=== PATIENT | female | born 1990 | race Caucasian/White ===

== ENCOUNTER 2018-11-26 09:34 | Outpatient (REF) | payer MEDICAID, SELFPAY ==
--- NOTE | 2018-11-26 08:30 | PAPFT_PTH ---
PATIENT: Ernestina Toribio LOC: [facility] U#:[id number] AGE/SX: 28/F ROOM: RE11/26/[address]: ILEANA Correa : 1990 BED: DIS: 11/26/2018 SPEC #: [id number] RECD: 11/26/18 12:54 STATUS: SURESH REaSbrina #: [id number] PEE: 11/26/18 08:[address]: Marylin Tatum DEPT: [facility] Cytology RECD BY: Judith Foster ENTERED: 11/26/18 12:54 SP TYPE: PAPFT OTHR DR: Gisselle Coello Tissues: 1 - CX/ENDOCX FOR PAP SMEARS Procedures: PAP THIN PREP/UVM Screening Comments: [id number]
== END 2018-11-26 09:54 ==
LOC: LBN 09:34
PROVIDERS: PCP Nurse Practitioner; Visit Provider Nurse Practitioner Family
DX: Z12.4 Encounter for screening for malignant neoplasm of cervix (principal)
CPT/HCPCS: 88142

== ENCOUNTER 2019-05-11 15:29 | Outpatient (REF) | payer MEDICAID, SELFPAY | END 2019-05-11 15:49 | LOC: LBN 15:29 | PROVIDERS: PCP Nurse Practitioner; Visit Provider Nurse Practitioner Family | DX: R30.0 Dysuria (principal) | CPT/HCPCS: 87086 ==

== ENCOUNTER 2020-03-13 13:52 | Emergency (ER) | payer MEDICAID, SELFPAY ==
[2020-03-13] VITALS (45 sets, daily range): BP systolic 117–140; BP diastolic 73–99; PULSE 69–121; RESP 13–29; TEMP 36.7–36.8; O2SAT 96–100
--- NOTE | 2020-03-13 14:00 | RT.EKG_ITS ---
APPROVED REPORT Exam: Resting ECG Patient Location: E HR:95 bpm ECG Measurements Heart Rate 95 AXIS VT 131 P 76 QRSd 84 QRS 84 QT 336 T 29 QTc 423 Conclusion Sinus rhythm...normal P axis, V-rate 60- 99 Normal Electrocardiogram
--- NOTE | 2020-03-13 14:30 | DI.CT_ITS ---
EXAM: CT CHEST PE CTA CLINICAL HISTORY: chest pain, cough. TECHNIQUE: Imaging Protocol: Axial CT angiography was performed with multi-slice acquisition and mu lti-planar and/or 3D reconstructions. CONTRAST MATERIAL: Intravenous: Omnipaque 350 Contrast volume:structured data in ml COMPARISON: No exams were available for comparison FINDINGS: CT angiography of the chest was performed with intravenous infusion of 58 cc of Omnipaque 350. The lungs are clear. No pleural effusion. Tracheobronchial tree appears intact. No evidence of pulmonary embolic disease. Thoracic aorta is of normal diameter, no thoracic aortic an eurysm or dissection, major branch vessels appear intact. No mediastinal or hilar adenopathy. Images obtained through the upper abdomen show unremarkable appearance of the visualized portions of the liver and spleen. IMPRESSION: Negative CT angiogram of the chest. No evidence of pulmonary embolic disease. RADIATION DOSE DELIVERED: 253.71mGy.cm Total DLP 253.71mGy.cm Total DLP DATA REPOSITORY: All CT scans at this facility are submitted to the National Radiology Data Registry (NRDR) Dose Index Registry (DIR) with the [employer] (ACR). RADIATION OPTIMIZATION: All CT scans at this facility use at least one of these dose optimization te chniques: automated exposure control; mA and/or kV adjustment per patient size (includes targeted exa ms where dose is matched to clinical indication); or iterative reconstruction.
[2020-03-13 14:35] LABS: Lactate 1.3 mmol/L (0.6-1.4)
[2020-03-13 14:40] LABS: Abs Immature Grans 0.01 10^3/uL (0.0-0.06); Absolute Basophil Count 0.01 10^3/uL (0.0-0.2); Absolute Eosinophil Count 0.05 10^3/uL (0.0-0.7); Absolute Monocyte Count 0.29 10^3/uL (0.1-0.8); Basophils % 0.2; Eosinophils % 0.9; HCT 41.1 % (36.0-46.0); HGB 14.5 g/dL (11.2-15.7); Immature Grans % 0.2; Lymphocytes % 29.3; MCH 30.5 pg (27.0-33.0); MCHC 35.3 % (32.0-36.0); MCV 86.5 fL (80-95); MPV 9.2 fL (8.0-11.0); Monocytes % 5.3; Neutrophils % 64.1; Nucleated RBC 0 %; Platelet Count 316 10^3/uL (130-400); RBC 4.75 10^6/uL (3.93-5.22); RDW 11.7 % (11.7-14.6); RDW-SD 36.6 fL; WBC 5.46 10^3/uL (4.4-10.8)
[2020-03-13 14:59] LABS: ALT 13 U/L (14-59); AST 16 U/L (15-37); Albumin 4.1 g/dL (3.4-5.0); Alkaline Phosphatase 72 U/L (46-116); Anion Gap 8.8 mmol/L (3-11); BUN 8 mg/dL (7-18); Bilirubin, Total 0.7 mg/dL (0.2-1.0); CO2 27.2 mmol/L (21.0-32.0); CREATININE 0.78 mg/dL (0.55-1.02); Calcium 9.3 mg/dL (8.5-10.1); Chloride 105 mmol/L (98-107); Glucose 100 mg/dL (74-106); Potassium 3.7 mmol/L (3.5-5.1); Sodium 141 mmol/L (136-145); Total Protein 7.4 g/dL (6.4-8.2)
[2020-03-13 15:03] LABS: Troponin I < 0.05 ng/mL (<0.06)
[2020-03-13 15:14] LABS: Bilirubin Negative (Negative); Blood Negative (Negative); Clarity Clear (Clear); Glucose Negative (Negative); Ketones 15 mg/dL (Negative); Leukocyte Esterase Negative (Negative); Nitrite Negative (Negative); Urobilinogen 0.2 EU/dL (Up TO 0.2); pH 8.5 (5-8)
[2020-03-13] MEDS: Normal Saline - Diluent 50 ML VIAL IV (15:28)
[2020-03-13] MEDS: Omnipaque 350 MG/ML 100 ML BTL IJ (15:28)
--- NOTE | 2020-03-13 16:18 | ED.GENADUL_ITS ---
Discharge Plan Disposition Patient Disposition: HOME Condition: Improving Discharge Details Clinical Impression: Cough, Chest pain Primary Care Provider: Gisselle Coello ED Provider: Gena Elise Home Meds and New Rx's Prescriptions: No Action norgestimate-ethinyl estradiol [Sprintec (28)] 0.25-35 mg-mcg tablet 1 tab PO DAILY Qty: 84 RF: 3 Discharge Instructions Instructions: Chest Pain (ED), Acute Cough (ED) Additional Instructions: Please return immediately to the emergency department if you develop any new or worsening symptoms, if your condition does not improve as expected, or if you become otherwise concerned. It is extremely important that you call soon as possible to make an appointment to be seen in follow-up for this visit by your primary care doctor. Your COVID test has not resulted. Please quarantine at home until you are notified of your test results. As you may be COVID positive, it is extremely important that you quarantine at home in isolation from others until this test results. If your symptoms of chest pain and fluttering continue, you could consider an outpatient heart monitor ordered by your primary care doctor. Referrals: Gisselle Coello [Primary Care Provider] - Discharge Data Discharge Date/Time-TO BE ENTERED AT DEPARTURE: 03/13/20 20:50 Discharge Physician: Gena Elise Medical Decision Making <Arlet Bowser MD - Last Filed: 04/10/20 08:24> Ernestina Toribio is a 29-year-old woman who presents emergency department with cough, mild shortness of breath, chest pain. On exam patient is well and nontoxic-appearing. Lungs are clear to auscultation. There is tenderness of the right lateral lower rib to palpation without overlying skin changes, no other chest tenderness. Benign cardiac exam. No lower extremity edema or posterior calf tenderness to palpation. Concern for pneumonia, Covid, other viral respiratory infection, other. With borderline tachycardia some concern for pulmonary embolism. Doubt ACS. Exam/history at this time is not consistent with rib fracture, acute aortic pathology, sepsis. Plan for EKG, CT chest, screening labs, IV fluid hydration. Will monitor and reassess. Initial EKG, troponin negative. CT negative. Patient now with tachycardia at 110. Plan for continued IV fluid hydration. Patient signed out to Dr. Elise at time of shift change with repeat EKG, troponin, and reassessment of tachycardia pending. Medical Records Medical records reviewed: Yes I reviewed the patient's medical records. Imaging Data Radiologic Study: Attestation: I personally reviewed and interpreted this imaging study as follows: Radiologist's impression: EXAM: CT CHEST PE CTA CLINICAL HISTORY: chest pain, cough. TECHNIQUE: Imaging Protocol: Axial CT angiography was performed with multi- slice acquisition and multi-planar and/or 3D reconstructions. CONTRAST MATERIAL: Intravenous: Omnipaque 350 Contrast volume:structured data in ml COMPARISON: No exams were available for comparison FINDINGS: CT angiography of the chest was performed with intravenous infusion of 58 cc of Omnipaque 350. The lungs are clear. No pleural effusion. Tracheobronchial tree appears intact. No evidence of pulmonary embolic disease. Thoracic aorta is of normal diameter, no thoracic aortic aneurysm or dissection, major branch vessels appear intact. No mediastinal or hilar adenopathy. Images obtained through the upper abdomen show unremarkable appearance of the visualized portions of the liver and spleen. IMPRESSION: Negative CT angiogram of the chest. No evidence of pulmonary embolic disease. Lab Data Lab results reviewed: Yes I reviewed the patient's lab results. ECG Data Attestation: I personally reviewed and interpreted this ECG (s) as follows: Interpretation: EKG shows sinus rhythm at 95, normal axis, no acute ischemic changes, nondiagnostic EKG <Gena Elise DO - Last Filed: 03/14/20 00:36> 1500 -- Please see Dr. Arlet Bowser's note for initial presentation, exam and plan. Case endorsed to follow-up on repeat troponin and EKG and reassessment of heart rate after IV fluids. Repeat troponin negative. Patient had 2 repeat EKGs within 40 minutes of each other. Second EKG notes less than [address] depression in anterior lateral and inferior leads. A third EKG was done which noted resolution of these depressions. Patient's heart rate has remained 80s to 90s on monitor. Upon my reevaluation, heart rate increased to 120s and she seemed extremely anxious. She does admit to occasional symptoms of fluttering, and expresses extreme anxiety about her symptoms and about possible coronavirus. Patient also had tenderness to palpation of her right lateral inferior ribs which she attributes to coughing this week. Overall patient's presentation appears most likely consistent with a URI process in association with possible bronchitis, anxiety and dehydration as she states she has not drank much water and has mainly drank 4 to 6 cups of coffee daily over the past few days. She was given a dose of Ativan and a Lidoderm patch and her symptoms improved. A fourth EKG was done which noted less than [address] depression in anterior, lateral and inferior leads similar to second EKG. No STEMI. Considering pat ient's symptom constellation, do not feel that this appears consistent with ACS. Patient feels much better and feels good to go home. She was advised to follow-up with her PCP for reevaluation and for referral for outpatient nuclear monitoring technician if her symptoms persist. Usual and customary return precautions given prior to discharge. Medical Records Medical records reviewed: Yes I reviewed the patient's medical records. Lab Data Lab results reviewed: Yes I reviewed the patient's lab results. ECG Data Attestation: I personally reviewed and interpreted this ECG (s) as follows: Interpretation: #1 -- rate of 95, sinus, no acute ST elevation or depression. TN 131. QRS 84. QTc 423. #2 -- rate of 118, sinus, less than [address] depression in lead I, II, III, aVF, V3 through V6. No acute ST elevation. TN 154. QRS 87. QTc 415. #3 -- rate of 93, sinus, no acute ST elevation or depression. TN 131. QRS 93. QTc 434. #4 -- rate of 96, sinus, questionable less than [address] depression in 1, 2, 3, aVF, V3 through V6, seen in previous. No acute ST elevation. TN 124. QRS 92. QTc 416. HPI <Arlet Bowser MD - Last Filed: 04/10/20 08:24> General Mode of arrival: ambulatory . Date/Time Provider Initiated Documentation: 03/13/20 14:08 . Limitations to Documentation: no limitations . Information obtained by: patient, RN notes reviewed and old records reviewed . HPI Narrative: Ernestina Toribio is a 29-year-old woman without reported history of medical problems presenting to the emergency department with cough, sore throat, chest pain. Patient reports that 1 week ago she developed dry cough, sore throat. Patient reports that her right lateral ribs began hurting several days after onset of cough, with pain only during coughing. Patient reports that she has felt mildly short of breath with exertion since onset of symptoms, but this has not prevented her from going about her usual activities. Patient reports that this morning she began to feel somewhat lightheaded with standing, and also reports sort of heaviness in her left anterior chest patient reports this is mild, states it is not currently occurring. Patient reports onset was at rest. She reports she has some pleuritic pain in her right lateral ribs, no other exertional or pleuritic pain. Has been eating and drinking as usual. Reports chills. She denies fevers, vomiting, diarrhea, numbness, weakness, rash. Related Data Home Medications Medication Instructions Recorded Confirmed norgestimate 0.25 mg-ethinyl 1 tab PO DAILY #84 tab 03/21/20 03/21/20 estradiol 35 mcg tablet Previous Rx's Medication Instructions Recorded norgestimate 0.25 mg-ethinyl 1 tab PO DAILY #84 tab 03/21/20 estradiol 35 mcg tablet Allergies Allergy/AdvReac Type Severity Reaction Status Date / Time No Known Allergies Allergy Verified 03/21/20 10:52 General Stated Complaint: RespSymp ROSSY: 3 Review of Systems <Arlet Bowser MD - Last Filed: 04/10/20 08:24> Narrative: Constitutional: denies fevers, reports chills Eyes: denies eye pain ENT: denies ear pain, dental pain, sore throat Cardiovascular: reports chest pain, denies edema Respiratory: Reports SOB, cough GI: denies abdominal pain, vomiting, diarrhea : denies flank pain MSK: denies back pain, neck pain, arthralgias, myalgias Skin: denies rash Neuro: denies headaches, numbness, weakness PFS <Arlet Bowser MD - Last Filed: 04/10/20 08:24> Medical History (Updated 03/13/20 @ 16:46 by Arlet Bowser MD) Contraception (06/22/15) Family History Mother Thyroid disorder Brother Thyroid disorder Grandmother Diabetes Social History Smoking/Tobacco Use Status: Never Smoking risk assessment performed?: Yes Alcohol Intake: current Alcohol Intake frequency: holidays/special occasions only Drug use: Never Substance use type: does not use current occupation: [employer] [place] [employer] Do you feel safe at home: Yes Female Reproductive History Menstrual control method: pills History History 0 Para Hx # Term Pregnancies Multiple births Hx # Pregnancies Ectopic pregnancies AB induced Hx Number of Living Children AB spontaneous Exam <Arlet Bowser MD - Last Filed: 04/10/20 08:24> Narrative Exam Narrative: Constitutional: well and [id number], pleasant, conversing normally HENT: head atraumatic/normocephalic/normal inspection, mucous membranes moist Eyes: conjunctiva normal, sclera normal, pupils 3mm b/l Neck: no stridor, normal ROM, trachea midline Chest: normal inspection, right lateral ribs mildly tender to palpation without overlying skin changes, no other chest tenderness Resp: normal work of breathing, LCTAB, Cardio: normal rate, normal rhythm, no murmur appreciated GI: abdomen soft, non-tender, non-distended Back: normal inspection, no rash Skin: warm, dry, normal color, no rash Neuro: alert, not altered, grossly non-focal, normal tone Ext: no edema, no posterior calf tenderness to palpation Psych: normal mood, normal affect, normal behavior Course <Arlet Bowser MD - Last Filed: 04/10/20 08:24> Vital Signs Vital signs: Vital Signs Temperature 36.7 C 03/13/20 13:59 Pulse 109 H 03/13/20 13:59 Respiratory Rate 18 03/13/20 13:59 Blood Pressure 140/91 H 03/13/20 13:59 Pulse Oximetry 100 03/13/20 13:59 Temperature 36.7 C 03/13/20 13:59 Temperature Source Temporal Artery Scan 03/13/20 13:59 Pulse 113 H 03/13/20 15:01 Pulse 82 03/13/20 15:50 Respiratory Rate 15 03/13/20 15:50 Respiratory Effort 03/13/20 14:05 Respiratory Depth Normal 03/13/20 14:05 Blood Pressure 132/99 H 03/13/20 15:01 Blood Pressure Mean 106 03/13/20 15:01 Blood Pressure Position Sitting 03/13/20 13:59 Pulse Oximetry 100 03/13/20 15:50 Oxygen Delivery Method Room Air 03/13/20 13:59 Oxygen Flow Rate 0 03/13/20 13:59 Pain Level 6 03/13/20 13:59 Lab/Test Results Lab/Test Results: Laboratory Tests Range/Units 03/13/20 03/13/20 03/13/20 14:17 14:17 14:17 WBC (4.4-10.8) 10^3/uL 5.46 RBC (3.93-5.22) 10^6/uL 4.75 Hgb (11.2-15.7) g/dL 14.5 Hct (36.0-46.0) % 41.1 MCV (80-95) fL 86.5 MCH (27.0-33.0) pg 30.5 MCHC (32.0-36.0) % 35.3 RDW (11.7-14.6) % 11.7 Plt Count (130-400) 10^3/uL 316 MPV (8.0-11.0) fL 9.2 Immature Gran % 0.2 Neutrophils % 64.1 Lymphocytes % 29.3 Monocytes % 5.3 Eosinophils % 0.9 Basophils % 0.2 Nucleated RBC % % 0 Absolute Neutrophils (1.2-6.7) 10^3/uL 3.50 Absolute Lymphocytes (1.2-3.4) 10^3/uL 1.60 Absolute Monocytes (0.1-0.8) 10^3/uL 0.29 Absolute Eosinophils (0.0-0.7) 10^3/uL 0.05 Absolute Basophils (0.0-0.2) 10^3/uL 0.01 VBG Lactate (0.6-1.4) mmol/L 1.3 Sodium (136-145) mmol/L 141 Potassium (3.5-5.1) mmol/L 3.7 Chloride (98-107) mmol/L 105 Carbon Dioxide (21.0-32.0) mmol/L 27.2 Anion Gap (3-11) mmol/L 8.8 BUN (7-18) mg/dL 8 Creatinine (0.55-1.02) mg/dL 0.78 Estimated GFR/1.73 m2 (mL/min/1.73m2) >= 60.00 Glucose (74-106) mg/dL 100 Calcium (8.5-10.1) mg/dL 9.3 Total Bilirubin (0.2-1.0) mg/dL 0.7 AST (15-37) U/L 16 ALT (14-59) U/L 13 L Alkaline Phosphatase (46-116) U/L 72 Troponin I (<0.06) ng/mL < 0.05 Total Protein (6.4-8.2) g/dL 7.4 Albumin (3.4-5.0) g/dL 4.1 Urine Color (Yellow) Urine Clarity (Clear) Urine pH (5-8) Ur Specific [place] (1.005-1.025) Urine Protein (Negative) mg/dL Urine Ketones (Negative) mg/dL Urine Blood (Negative) Urine Nitrite (Negative) Urine Bilirubin (Negative) Urine Urobilinogen (Up TO 0.2) EU/dL Ur Leukocyte Esterase (Negative) Urine Glucose (Negative) mg/dL Range/Units 03/13/20 15:05 WBC (4.4-10.8) 10^3/uL RBC (3.93-5.22) 10^6/uL Hgb (11.2-15.7) g/dL Hct (36.0-46.0) % MCV (80-95) fL MCH (27.0-33.0) pg MCHC (32.0-36.0) % RDW (11.7-14.6) % Plt Count (130-400) 10^3/uL MPV (8.0-11.0) fL Immature Gran % Neutrophils % Lymphocytes % Monocytes % Eosinophils % Basophils % Nucleated RBC % % Absolute Neutrophils (1.2-6.7) 10^3/uL Absolute Lymphocytes (1.2-3.4) 10^3/uL Absolute Monocytes (0.1-0.8) 10^3/uL Absolute Eosinophils (0.0-0.7) 10^3/uL Absolute Basophils (0.0-0.2) 10^3/uL VBG Lactate (0.6-1.4) mmol/L Sodium (136-145) mmol/L Potassium (3.5-5.1) mmol/L Chloride (98-107) mmol/L Carbon Dioxide (21.0-32.0) mmol/L Anion Gap (3-11) mmol/L BUN (7-18) mg/dL Creatinine (0.55-1.02) mg/dL Estimated GFR/1.73 m2 (mL/min/1.73m2) Glucose (74-106) mg/dL Calcium (8.5-10.1) mg/dL Total Bilirubin (0.2-1.0) mg/dL AST (15-37) U/L ALT (14-59) U/L Alkaline Phosphatase (46-116) U/L Troponin I (<0.06) ng/mL Total Protein (6.4-8.2) g/dL Albumin (3.4-5.0) g/dL Urine Color (Yellow) Yellow Urine Clarity (Clear) Clear Urine pH (5-8) 8.5 H Ur Specific [place] (1.005-1.025) 1.020 Urine Protein (Negative) mg/dL Negative Urine Ketones (Negative) mg/dL 15 H Urine Blood (Negative) Negative Urine Nitrite (Negative) Negative Urine Bilirubin (Negative) Negative Urine Urobilinogen (Up TO 0.2) EU/dL 0.2 Ur Leukocyte Esterase (Negative) Negative Urine Glucose (Negative) mg/dL Negative POC- Test(urine) Negative Sign Out <Arlet Bowser MD - Last Filed: 04/10/20 08:24> Sign Out Data: Sign Out Comment: Patient signed out to Dr. Elise at time of shift change with repeat troponin, reassessment of tachycardia pending Last updated by Arlet Bowser MD at 03/13/20 16:48
--- NOTE | 2020-03-13 16:30 | RT.EKG_ITS ---
APPROVED REPORT Exam: Resting ECG Patient Location: E HR:118 bpm ECG Measurements Heart Rate 118 AXIS WV 154 P 66 QRSd 87 QRS 82 QT 296 T -75 QTc 415 Conclusion Sinus tachycardia...rate> 99 Nonspecific repol abnormality, diffuse leads...ST dep, T flat/neg, ant/lat/inf. Less than 1mm ST depression in I, II, III, aVF, V3-V6. No STEMI. I have reviewed and interpreted ECG and agree with software generated interpretation.
--- NOTE | 2020-03-13 17:15 | RT.EKG_ITS ---
APPROVED REPORT Exam: Resting ECG Patient Location: E HR:93 bpm ECG Measurements Heart Rate 93 AXIS MI 131 P 64 QRSd 93 QRS 79 QT 347 T 49 QTc 434 Conclusion Sinus rhythm...normal P axis, V-rate 60- 99.. No STEMI. I have reviewed and interpreted ECG and agree with software generated interpretation.
[2020-03-13 18:02] LABS: Troponin I < 0.05 ng/mL (<0.06)
--- NOTE | 2020-03-13 19:30 | RT.EKG_ITS ---
APPROVED REPORT Exam: Resting ECG Patient Location: E HR:96 bpm ECG Measurements Heart Rate 96 AXIS MS 124 P 68 QRSd 92 QRS 73 QT 329 T -19 QTc 416 Conclusion Sinus rhythm...normal P axis, V-rate 60- 99. Questionable less than 1mm ST depression in I, II, III, aVF, V3-6, seen in previous. No STEMI. I have reviewed and interpreted ECG and agree with software generated interpretation.
[2020-03-13] MEDS: Lidocaine 5% Patch 1 PATCH TP (19:52)
[2020-03-13] MEDS: LORazepam 0.5 MG TAB PO (19:52)
[2020-03-15 02:55] LABS: Patient Race White; SARS-CoV-2 RNA Undetected (Undetected); SARS-CoV-2 Specimen Source Nasopharynx
--- NOTE | 2020-03-16 17:40 | NUR.NOTE ---
Nursing Note: Negative COVID results given over the phone at 1740 to pt after verification of identification.
== END 2020-03-13 20:50 | disposition home or self-care (01) ==
PROVIDERS: Student in an Organized Health Care Education/Training Program; Emergency Provider Physician Assistant; PCP Nurse Practitioner
DX: R07.89 Other chest pain (principal); R05 Cough; Z11.59 Encounter for screening for other viral diseases
CPT/HCPCS: 36415; 71275; 80053; 81025; 93005; 99285; U0003; 81003; 83605; 84484; 85025; 93010; 99281; J3490

== ENCOUNTER 2020-03-21 12:22 | Outpatient (REF) | payer MEDICAID, SELFPAY ==
--- NOTE | 2020-03-21 11:15 | PAPFT_PTH ---
PATIENT: Ernestina Toribio LOC: [facility] U#:[id number] AGE/SX: 29/F ROOM: RE03/21/[address]: ILEANA Correa : 1990 BED: DIS: 03/21/2020 SPEC #: [id number] RECD: 03/21/20 17:39 STATUS: SURESH REQ #: [id number] PEE: 03/21/20 11:[address]: Marylin Tatum DEPT: [facility] Cytology RECD BY: Judith Foster ENTERED: 03/21/20 17:39 SP TYPE: PAPFT OTHR DR: Gisselle Coello Tissues: 1 - CX/ENDOCX FOR PAP SMEARS Procedures: PAP THIN PREP/[facility]VM Screening Comments: [id number]
== END 2020-03-21 12:42 ==
LOC: LBN 12:22
PROVIDERS: PCP Nurse Practitioner; Visit Provider Nurse Practitioner Family
DX: Z12.4 Encounter for screening for malignant neoplasm of cervix (principal)
CPT/HCPCS: 88142

== ENCOUNTER 2020-08-03 03:51 | Outpatient (RCR) | payer MEDICAID, SELFPAY | END 2020-08-06 23:59 | disposition home or self-care (01) | LOC: RT 03:51 | PROVIDERS: PCP Nurse Practitioner; Visit Provider Physician Assistant | DX: R69 Illness, unspecified (principal) ==

== ENCOUNTER 2020-08-31 03:09 | Outpatient (RCR) | payer MEDICAID, SELFPAY | END 2020-09-06 23:59 | disposition home or self-care (01) | LOC: RT 03:09 | PROVIDERS: PCP Nurse Practitioner; Visit Provider Physician Assistant | DX: R69 Illness, unspecified (principal) ==

== ENCOUNTER 2021-04-06 15:44 | Outpatient (REF) | payer OTHER, SELFPAY ==
--- NOTE | 2021-04-06 15:15 | PAPFT_PTH ---
PATIENT: Ernestina Toribio LOC: [facility] U#:[id number] AGE/SX: 30/F ROOM: RE04/06/[address]: ILEANA Correa : 1990 BED: DIS: 04/06/2021 SPEC #: [id number] RECD: 04/06/21 17:41 STATUS: SURESH REQ #: [id number] PEE: 04/06/21 15:[address]: Marylin Tatum DEPT: [facility] Cytology RECD BY: Judith Foster ENTERED: 04/06/21 17:42 SP TYPE: PAPFT OTHR DR: Gisselle Coello Tissues: 1 - CX/ENDOCX FOR PAP SMEARS Procedures: PAP THIN PREP/UVM Screening HPV DNA PROBE Comments: [id number]
== END 2021-04-06 15:45 | disposition home or self-care (01) ==
LOC: LBN 15:44
PROVIDERS: PCP Nurse Practitioner; Visit Provider Nurse Practitioner Family
DX: Z12.4 Encounter for screening for malignant neoplasm of cervix (principal); R87.610 Atypical squamous cells of undetermined significance on cytologic smear of cervix (ASC-US)
CPT/HCPCS: 88142; 87624

== ENCOUNTER 2021-04-30 12:46 | Outpatient (REF) | payer OTHER, MEDICAID, SELFPAY | END 2021-04-30 12:47 | disposition home or self-care (01) | LOC: LBN 12:46 | PROVIDERS: PCP Nurse Practitioner; Visit Provider Physician Assistant Medical | DX: R30.0 Dysuria (principal) | CPT/HCPCS: 87086 ==

== ENCOUNTER 2021-05-05 17:21 | Emergency (ER) | payer OTHER, MEDICAID, SELFPAY ==
[2021-05-05 17:30] VITALS: BP 119/79; PULSE 89; RESP 16; TEMP 35.5; O2SAT 100
--- NOTE | 2021-05-05 17:45 | DI.CT_ITS ---
Exam(s) CT HEAD WO EXAM: CT HEAD WO CLINICAL HISTORY: L frontal injury, pain. TECHNIQUE: Imaging Protocol: Axial computed tomography images with coronal and sagittal reformatted images were created and reviewed COMPARISON: No exams were available for comparison FINDINGS: There are no skull fractures nor fluid in the visualized paranasal sinuses. There is no evidence of intracranial hemorrhage, mass effect, or shift of midline structures. There are no extra-axial fluid collections. The ventricles are not enlarged or shifted and there is no blo od within the ventricular system nor within the basal cisterns. Mild cerebellar tonsillar ectopia. IMPRESSION: No acute intracranial findings on this noninfused CT scan of the brain. There appears to be mild cerebellar tonsillar ectopia. If clinically indicated further study with MR I can be performed. RADIATION DOSE DELIVERED: 627.12mGy.cm Total DLP DATA REPOSITORY: All CT scans at this facility are submitted to the National Radiology Data Registry (NRDR) Dose Index Registry (DIR) with the [employer] (A[employer]). RADIATION OPTIMIZATION: All CT scans at this facility use at least one of these dose optimization te chniques: automated exposure control; mA and/or kV adjustment per patient size (includes targeted exa ms where dose is matched to clinical indication); or iterative reconstruction.
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
--- NOTE | 2021-05-05 19:32 | DI.VRAD_ITS ---
PROCEDURE INFORMATION: Exam: CT Head Without Contrast Exam date and time: 05/05/2021 5:47 PM Age: 30 years old Clinical indication: Other: L frontal injury, pain TECHNIQUE: Imaging protocol: Computed tomography of the head without contrast. Radiation optimization: All CT scans at this facility use at least one of these dose optimization techniques: automated exposure control; mA and/or kV adjustment per patient size (includes targeted exams where dose is matched to clinical indication); or iterative reconstruction. COMPARISON: No relevant prior studies available. FINDINGS: Brain: Normal. No hemorrhage. Unremarkable white matter. No mass effect. Extra-axial space: No evidence of subdural hemorrhage. Cerebral ventricles: No ventriculomegaly. Paranasal sinuses: Visualized sinuses are unremarkable. No fluid levels. Mastoid air cells: Visualized mastoid air cells are well aerated. Bones/joints: Unremarkable. No acute fracture. Soft tissues: Unremarkable. IMPRESSION: No acute intracranial abnormality. Dictated and Authenticated by: Michael Adams MD. Ordering:ENA Elmore MD
== END 2021-05-05 19:51 | disposition home or self-care (01) ==
PROVIDERS: Emergency Provider Emergency Medicine; PCP Nurse Practitioner
DX: S09.8XXA Other specified injuries of head, initial encounter (principal); W22.8XXA Striking against or struck by other objects, initial encounter
CPT/HCPCS: 81025; 99284; 70450; 99283

== ENCOUNTER 2021-05-07 14:58 | Outpatient (REF) | payer OTHER, MEDICAID, SELFPAY ==
--- NOTE | 2021-05-07 14:50 | ENDO_PTH ---
PATIENT: Ernestina Toribio LOC: [facility] U#:[id number] AGE/SX: 30/F ROOM: RE05/07/[address]: Mari Fowler DO : 1990 BED: DIS: 05/07/2021 SPEC #: [id number] RECD: 05/07/21 17:44 STATUS: SURESH REQ #: [id number] PEE: 05/07/21 14:[address]: Mari Fowler DEPT: Surgical Specimen RECD BY: Judith Foster ENTERED: 05/07/21 17:45 SP TYPE: Endo OTHR DR: Gisselle Coello Tissues: 1 - ENDOCERVICAL BX/CURRETTE Procedures: GROSS AND MICRO LEVEL 4 Comments: [id number]
== END 2021-05-07 14:59 | disposition home or self-care (01) ==
LOC: LBN 14:58
PROVIDERS: PCP Nurse Practitioner; Visit Provider Obstetrics & Gynecology
DX: R87.610 Atypical squamous cells of undetermined significance on cytologic smear of cervix (ASC-US) (principal)
CPT/HCPCS: 88305

== ENCOUNTER 2021-05-22 14:52 | Outpatient (REF) | payer OTHER, MEDICAID, SELFPAY | END 2021-05-22 14:53 | disposition home or self-care (01) | LOC: LBN 14:52 | PROVIDERS: PCP Nurse Practitioner Family; Visit Provider Nurse Practitioner Family | DX: R10.11 Right upper quadrant pain (principal); R30.0 Dysuria | CPT/HCPCS: 87329; 87480; 87510; 87660 ==

== ENCOUNTER 2021-07-14 16:49 | Emergency (ER) | payer OTHER, MEDICAID, SELFPAY ==
[2021-07-14 17:04] VITALS: BP 120/87; PULSE 116; RESP 18; TEMP 36.6; O2SAT 99
[2021-07-14 17:04] LABS: Bilirubin Negative (Negative); Blood Negative (Negative); Clarity Clear (Clear); Glucose Negative (Negative); Ketones Negative (Negative); Leukocyte Esterase Negative (Negative); Nitrite Negative (Negative); pH 6.5 (5-8)
--- NOTE | 2021-07-14 17:19 | W.ED.GENAD ---
Discharge Plan Disposition Patient Disposition: HOME Condition: Improving Discharge Details Clinical Impression: Gaseous abdominal distention Primary Care Provider: Yuan Rushing ED Provider: Ramírez Hale Home Meds and New Rx's Prescriptions: Continued azjrxffz-yoq-Lf-FA 1 mg Tablet PO RF: 0 Discharge Instructions Additional Instructions: Your work-up today including laboratory testing with CBC, comprehensive panel, serum beta hCG was reassuring. Your urine and blood test were negative. You may still have the chance of an early and I recommend you repeat a home test if you do not have your menstrual period in the next 3 to 7 days time. Home to rest today. Small, frequent sips of fluid so that you maintain good hydration. Return to the emergency department for any acute concerns. Medical Decision Making 31-year-old female presents with lower abdominal cramping discomfort over the few days time. He is concerned because she is trying to get has been late for her period. She is not had nausea, vomiting or fever. Screening laboratories obtained. Patient is a white count of 5, hematocrit 42, platelets 254. Chemistries reassuring, LFTs unremarkable, beta hCG negative. Patient improved with fluids. She is stable and appropriate for outpatient management. HPI General Mode of arrival: ambulatory. Date/Time Provider Initiated Documentation: 07/14/21 16:50. Limitations to Documentation: no limitations. Information obtained by: patient. History of Present Illness 31 year old F presents to the emergency department with the chief complaint of Lower abdomen cramping and lightheadedness, described as mild, and is localized to the abdomen and pelvis. Patient reports no radiation. Patient started experiencing this day(s) and it has been intermittent. No relieving factors improve symptom(s), No exacerbating factors reported . Patient notes denies diaphoresis, fever/chills and nausea/vomiting. Patient did receive the following treatments prior to arrival, none Related Data Home Medications Medication Instructions Recorded Confirmed eznnayvh-shf-Hk-FA tab PO 05/05/21 Allergies Allergy/AdvReac Type Severity Reaction Status Date / Time No Known Allergies Allergy Verified 07/14/21 17:11 General Stated Complaint: Abd Prob ROSSY: 3 Review of Systems Narrative: Has been trying to get . 2 days late for her period. No vaginal discharge or bleeding. Feels flatus and gaseousness. Normal bowel movements. No known sick contacts. 8 systems were reviewed and otherwise negative. PFSH All Active Problems (Updated 07/14/21 @ 18:36 by Ramírez Hale MD) Closed head injury (Acute) Gaseous abdominal distention (Acute) Annual physical exam (Acute) Contraception (Acute 06/22/15) Family History Mother Thyroid disorder Brother Thyroid disorder Grandmother Diabetes Social History Smoking/Tobacco Use Status: Never Smoking risk assessment performed?: Yes Alcohol Intake: current Alcohol Intake frequency: holidays/special occasions only Drug use: Never Substance use type: does not use Counseling given: No Counseling provided: none current occupation: [employer] [place] [employer] Do you feel safe at home: Yes Do you feel safe in your relationship?: Yes Female Reproductive History Menstrual control method: pills History History 0 Para Hx # Term Pregnancies Multiple births Hx # Pregnancies Ectopic pregnancies AB induced Hx Number of Living Children AB spontaneous Exam Narrative Exam Narrative: GEN: awake, alert, oriented 3. Pleasant, well groomed, interactive. HEAD: Normocephalic, atraumatic ENT: Mucous membranes moist, oropharynx unremarkable, External ear exam unremarkable EYES: PERRL, EOMI NECK: Full ROM, no SHEREE, no menigismus CHEST/RESP: Nontender, clear to auscultation bilateral, no wheeze/rhonchi/rales CARDIOVASCULAR: Regular and tachycardic it was working, no murmur, rub teo. 2+ Rad pulse bilateral ABDOMEN: Soft, nontender, no mass. +Bowel sounds EXT: Full ROM, no edema, no rash Neuro: Grossly normal neurologic exam, conversant, interactive. Psych: Speech fluent, thoughts congruent, affect normal Course Vital Signs Vital signs: Vital Signs Temperature 36.6 C 07/14/21 17:04 Pulse 116 H 07/14/21 17:04 Respiratory Rate 18 07/14/21 17:04 Blood Pressure 120/87 07/14/21 17:04 Pulse Oximetry 99 07/14/21 17:04 Temperature 36.6 C 07/14/21 17:04 Temperature Source Oral 07/14/21 17:04 Pulse 116 H 07/14/21 17:04 Respiratory Rate 18 07/14/21 17:04 Respiratory Effort Non-Labored 07/14/21 17:04 Blood Pressure 120/87 07/14/21 17:04 Blood Pressure Position Sitting 07/14/21 17:04 Pulse Oximetry 99 07/14/21 17:04 Oxygen Delivery Method Room Air 07/14/21 17:04 Oxygen Flow Rate 0 07/14/21 17:04 Pain Level 0 07/14/21 17:04 Lab/Test Results Lab/Test Results: Laboratory Tests Range/Units 07/14/21 17:00 Urine Color (Yellow) Yellow Urine Clarity (Clear) Clear Urine pH (5-8) 6.5 Ur Specific [place] (1.005-1.025) 1.010 Urine Protein (Negative) mg/dL Negative Urine Ketones (Negative) mg/dL Negative Urine Blood (Negative) Negative Urine Nitrite (Negative) Negative Urine Bilirubin (Negative) Negative Urine Urobilinogen (Up TO 0.2) EU/dL 1.0 H Ur Leukocyte Esterase (Negative) Negative Urine Glucose (Negative) mg/dL Negative POC- Test(urine) Negative PAWSS Have you Been Recently Intoxicated or Drunk Within the Last 30 days?: No Have you Ever Experienced Previous Episodes of Alcohol Withdrawal?: No Have you ever Experienced Withdrawal Seizures?: No Have you ever Experienced Delirium Tremens(DT)s?: No Have you ever undergone Alcohol Rehabilitation Treatment (i.e, inpt ot outpatient treatment programs)?: No Have you ever Experienced Blackouts?: No Have you ever Combined Alcohol with other Downers within the last 90 days?: No Have you ever Combined Alcohol with any other Substance of Abuse during the last 90 days?: No Positive Blood Alcohol level on Presentation? [PCS.BAL]: No Evidence of Increased Autonomic Activity (i.e. HR>120, tremor, sweating, agitation, nausea)?: No Result: 0
[2021-07-14] MEDS: Normal Saline 1,000 ML 1000 ML IV (17:41)
[2021-07-14 17:57] LABS: Abs Immature Grans 0.01 10^3/uL (0.0-0.06); Absolute Basophil Count 0.01 10^3/uL (0.0-0.2); Absolute Eosinophil Count 0.03 10^3/uL (0.0-0.7); Absolute Lymphocyte Count 1.45 10^3/uL (1.2-3.4); Absolute Monocyte Count 0.33 10^3/uL (0.1-0.8); Absolute Neutrophil Count 3.88 10^3/uL (1.2-6.7); Basophils % 0.2; Eosinophils % 0.5; HCT 42.1 % (36.0-46.0); HGB 14.6 g/dL (11.2-15.7); Immature Grans % 0.2; Lymphocytes % 25.4; MCH 29.7 pg (27.0-33.0); MCHC 34.7 % (32.0-36.0); MCV 85.6 fL (80-95); MPV 9.4 fL (8.0-11.0); Monocytes % 5.8; Neutrophils % 67.9; Nucleated RBC 0 %; Platelet Count 254 10^3/uL (130-400); RBC 4.92 10^6/uL (3.93-5.22); RDW 11.7 % (11.7-14.6); RDW-SD 36.2 fL; WBC 5.71 10^3/uL (4.4-10.8)
[2021-07-14 18:18] LABS: ALT 18 U/L (14-59); AST 15 U/L (15-37); Albumin 4.3 g/dL (3.4-5.0); Alkaline Phosphatase 72 U/L (46-116); Anion Gap 9.4 mmol/L (3-11); BUN 12 mg/dL (7-18); CO2 27.6 mmol/L (21.0-32.0); CREATININE 0.8 mg/dL (0.55-1.02); Chloride 104 mmol/L (98-107); Glucose 110 mg/dL (74-106); Magnesium 1.9 mg/dL (1.8-2.4); Potassium 3.8 mmol/L (3.5-5.1); Sodium 141 mmol/L (136-145); Total Protein 7.4 g/dL (6.4-8.2)
[2021-07-14 18:19] LABS: HCG Quant, Pregnancy < 1 mIU/mL (1-3)
== END 2021-07-14 19:17 | disposition home or self-care (01) ==
PROVIDERS: Emergency Provider Emergency Medicine; PCP Nurse Practitioner Family
DX: R14.0 Abdominal distension (gaseous) (principal); R10.30 Lower abdominal pain, unspecified
CPT/HCPCS: 36415; 80053; 81025; 96360; 99284; 81003; 83735; 84702; 85025; 99283

== ENCOUNTER 2021-10-23 02:19 | Outpatient (CLI) | payer OTHER, SELFPAY ==
[2021-10-23 12:20] LABS: Abs Immature Grans 0.02 10^3/uL (0.0-0.06); Absolute Basophil Count 0.02 10^3/uL (0.0-0.2); Absolute Eosinophil Count 0.06 10^3/uL (0.0-0.7); Absolute Monocyte Count 0.43 10^3/uL (0.1-0.8); Absolute Neutrophil Count 5.86 10^3/uL (1.2-6.7); Basophils % 0.2; Eosinophils % 0.7; HCT 36.8 % (36.0-46.0); Immature Grans % 0.2; Lymphocytes % 24.7; MCH 30.7 pg (27.0-33.0); MCHC 35.3 % (32.0-36.0); MCV 87 fL (80-95); Monocytes % 5.1; Neutrophils % 69.1; Platelet Count 237 10^3/uL (130-400); RBC 4.24 10^6/uL (3.93-5.22); RDW 12.2 % (11.7-14.6); RDW-SD 38.5 fL; WBC 8.49 10^3/uL (4.4-10.8)
[2021-10-23 13:00] LABS: *AMPHETAMINES SCREEN URINE Negative (Negative); *BARBITURATES SCREEN URINE Negative (Negative); *BENZODIAZEPINES SCREEN URINE Negative (Negative); Cannabinoids THC Negative (Negative); Cocaine Screen,Urine Negative (Negative); METHADONE URINE SCREEN Negative (Negative); OPIATES URINE SCREEN Negative (Negative)
[2021-10-23 13:08] LABS: Tricyclic Antidepressants Negative (Negative)
[2021-10-23 13:51] LABS: TSH (W/Ref FT4) 0.54 uIU/mL (0.36-3.74)
[2021-10-24 09:35] LABS: Hepatitis B Surface Ag Negative (Negative)
[2021-10-24 10:18] LABS: HIV-1/2 Ag & Ab Screen Negative (Negative)
[2021-10-24 10:25] LABS: Hepatitis C Ab w Rflx HCV PCR Negative (Negative)
[2021-10-24 10:57] LABS: Varicella IgG Antibody Positive (See Note)
[2021-10-24 10:59] LABS: Rubella IgG Ab (UVM) Positive (See Note)
[2021-10-25 16:38] LABS: Syphilis IgG w/Reflex Nonreactive (Nonreactive)
[2021-10-30 12:41] LABS: Buprenorphine Negative ng/mL (Cutoff: 5.0)
== END 2021-10-23 02:20 | disposition home or self-care (01) ==
LOC: LBO 02:19
PROVIDERS: PCP Nurse Practitioner Family; Visit Provider Advanced Practice Midwife
DX: Z34.91 Encounter for supervision of normal pregnancy, unspecified, first trimester (principal); Z3A.12 12 weeks gestation of pregnancy
CPT/HCPCS: 36415; 80307; 86787; 86803; 86850; 86900; 86901; 87340; 87389; 84443; 85025; 86762; 86780; 87086

== ENCOUNTER 2021-11-20 02:30 | Outpatient (CLI) | payer OTHER, SELFPAY ==
[2021-11-21 16:35] LABS: AFP 63.9 ng/mL; Calculated age at EDD 30 years; Cigarette smoking status non-Smoker; GA used in risk estimate Scan estimate; INHIBIN 224 pg/mL; IVF Pregnancy No; Initial or repeat testing Initial testing; Insulin dependent diabetes No; Maternal Weight 118 lbs; Number of Fetuses 1; Physician Phone Number 802-748-7300; Prev Down(T21)/Trisomy Pregnan No; Prev Pregnancy w/NTD No; RECOMMENDED FOLLOW UP None.; Results Summary Normal risk; hCG, TOTAL 31.7 IU/mL; hCG, TOTAL MoM 0.87 MoM; uE3 1.28 ng/mL; uE3 MoM 1.15 MoM
== END 2021-11-20 02:31 | disposition home or self-care (01) ==
LOC: LBO 02:30
PROVIDERS: Advanced Practice Midwife; PCP Nurse Practitioner Family; Visit Provider Advanced Practice Midwife
DX: Z34.92 Encounter for supervision of normal pregnancy, unspecified, second trimester (principal); Z36.89 Encounter for other specified antenatal screening; Z3A.16 16 weeks gestation of pregnancy
CPT/HCPCS: 36415; 81511

== ENCOUNTER 2021-11-20 14:51 | Outpatient (REF) | payer OTHER, SELFPAY ==
[2021-11-21 14:56] LABS: Chlamydia Result Negative (Negative); GC Result Negative (Negative)
== END 2021-11-20 14:52 | disposition home or self-care (01) ==
LOC: LBN 14:51
PROVIDERS: PCP Nurse Practitioner Family; Visit Provider Advanced Practice Midwife
DX: Z34.92 Encounter for supervision of normal pregnancy, unspecified, second trimester (principal); Z11.3 Encounter for screening for infections with a predominantly sexual mode of transmission; Z3A.16 16 weeks gestation of pregnancy
CPT/HCPCS: 87491; 87591

== ENCOUNTER 2022-02-13 04:04 | Outpatient (CLI) | payer OTHER, SELFPAY ==
[2022-02-13 09:51] LABS: HCT 33.8 % (36.0-46.0); HGB 11.7 g/dL (11.2-15.7); MCH 30.6 pg (27.0-33.0); MCHC 34.6 % (32.0-36.0); MCV 89 fL (80-95); MPV 9.3 fL (8.0-11.0); Platelet Count 183 10^3/uL (130-400); RBC 3.82 10^6/uL (3.93-5.22); RDW 11.9 % (11.7-14.6); RDW-SD 38.4 fL; WBC 6.91 10^3/uL (4.4-10.8)
[2022-02-13 10:26] LABS: Glucose,1 Hr (Glucola) 91 mg/dL (80-140)
== END 2022-02-13 04:05 | disposition home or self-care (01) ==
LOC: LBO 04:05
PROVIDERS: PCP Nurse Practitioner Family; Visit Provider Advanced Practice Midwife
DX: Z34.93 Encounter for supervision of normal pregnancy, unspecified, third trimester (principal)
CPT/HCPCS: 36415; 82950; 85027; 86850; 86900; 86901; 90384

== ENCOUNTER 2022-04-12 13:16 | Outpatient (REF) | payer OTHER, SELFPAY ==
[2022-04-12 11:31] LABS: *AMPHETAMINES SCREEN URINE Negative (Negative); *BARBITURATES SCREEN URINE Negative (Negative); *BENZODIAZEPINES SCREEN URINE Negative (Negative); Cannabinoids THC Negative (Negative); Cocaine Screen,Urine Negative (Negative); METHADONE URINE SCREEN Negative (Negative); OPIATES URINE SCREEN Negative (Negative); Tricyclic Antidepressants Negative (Negative)
== END 2022-04-12 13:17 | disposition home or self-care (01) ==
LOC: LBN 13:16
PROVIDERS: Visit Provider Advanced Practice Midwife
DX: Z34.93 Encounter for supervision of normal pregnancy, unspecified, third trimester (principal); Z36.85 Encounter for antenatal screening for Streptococcus B; Z3A.36 36 weeks gestation of pregnancy
CPT/HCPCS: 80307; 87081

== ENCOUNTER 2022-04-26 04:44 | Inpatient (IN) | payer OTHER, SELFPAY ==
[2022-04-26] VITALS (14 sets, daily range): BP systolic 119–172; BP diastolic 73–106; PULSE 80–133; RESP 12–18; TEMP 36.5–37; TEMPC 36.6; O2SAT 96–98; BMI 28.3
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
[2022-04-26] MEDS: Normal Saline Flush 10 ML SYR IVP (05:15)
[2022-04-26 05:18] LABS: HCT 38.6 % (36.0-46.0); MCH 28.8 pg (27.0-33.0); MCHC 33.7 % (32.0-36.0); MCV 86 fL (80-95); MPV 10.6 fL (8.0-11.0); Platelet Count 157 10^3/uL (130-400); RBC 4.51 10^6/uL (3.93-5.22); RDW 12.1 % (11.7-14.6); RDW-SD 37.7 fL; WBC 7.42 10^3/uL (4.4-10.8)
[2022-04-26 05:33] LABS: ALT 14 U/L (14-59); AST 25 U/L (15-37); Albumin 2.8 g/dL (3.4-5.0); Alkaline Phosphatase 196 U/L (46-116); Anion Gap 13.7 mmol/L (3-11); BUN 12 mg/dL (7-18); Bilirubin, Total 0.4 mg/dL (0.2-1.0); CO2 21.3 mmol/L (21.0-32.0); CREATININE 0.9 mg/dL (0.55-1.02); Calcium 8.7 mg/dL (8.5-10.1); Chloride 103 mmol/L (98-107); Glucose 76 mg/dL (74-106); LDH 237 U/L (81-234); Potassium 3.7 mmol/L (3.5-5.1); Sodium 138 mmol/L (136-145); Total Protein 6.6 g/dL (6.4-8.2); Uric Acid 5.4 mg/dL (2.6-6.0)
--- NOTE | 2022-04-26 05:55 | PGE_ITS ---
Date of service: 04/26/22 Time of Service: 05:55 Informed Consent Informed Consent: Risk,Benefits,Alternatives Discussed (IV access and lab/assessment for pre-eclampsia.) Pelvic Exam Comments: VE deferred Contractions Monitor Mode: External Contraction Frequency(min): 2-4 Contraction Duration(sec): 40-90 Intensity: Moderate Fetus A Monitor: External (US) Heart Rate Baseline: 120 Variability: Moderate (6-25 BPM) Categories: Category I Accelerations: 15 X 15 Decelerations: None Amniotic Membrane Status: Ruptured Rupture Method: Spontaneous Amniotic Fluid: Clear Amount: large Date of Membrane Rupture: 04/26/22 Time of Membrane Rupture: 02:30 Assessment Note: corrected time of ROM noted Assessment and Plan Assessment and plan (1) Normal labor: Status: Acute Assessment and plan: 1. continue present management 2. Bridge Rigger reviewed with CAR WORKER who is currently button tufting machine operator to report to on-coming CAR WORKER that patient has considered epidural, not currently requesting. I also reviewed COVID + status with CAR WORKER. KH Objective Abnormal lab results 04/26/22 Range/Units 05:05 Anion Gap 13.7 H (3-11) mmol/L Alkaline Phosphatase 196 H (46-116) U/L Lactate Dehydrogenase 237 H (81-234) U/L Albumin 2.8 L (3.4-5.0) g/dL Temp Pulse Resp BP 98.6 F 104 H 16 142/85 H 04/26/22 05:16 04/26/22 05:16 04/26/22 05:16 04/26/22 05:16 Laboratory Results WBC 7.42 10^3/uL (4.4-10.8) 04/26/22 05:05 RBC 4.51 10^6/uL (3.93-5.22) 04/26/22 05:05 Hgb 13.0 g/dL (11.2-15.7) 04/26/22 05:05 Hct 38.6 % (36.0-46.0) 04/26/22 05:05 MCV 86 fL (80-95) 04/26/22 05:05 MCH 28.8 pg (27.0-33.0) 04/26/22 05:05 MCHC 33.7 % (32.0-36.0) 04/26/22 05:05 RDW 12.1 % (11.7-14.6) 04/26/22 05:05 Plt Count 157 10^3/uL (130-400) 04/26/22 05:05 MPV 10.6 fL (8.0-11.0) 04/26/22 05:05 Sodium 138 mmol/L (136-145) 04/26/22 05:05 Potassium 3.7 mmol/L (3.5-5.1) 04/26/22 05:05 Chloride 103 mmol/L (98-107) 04/26/22 05:05 Carbon Dioxide 21.3 mmol/L (21.0-32.0) 04/26/22 05:05 Anion Gap 13.7 mmol/L (3-11) H 04/26/22 05:05 BUN 12 mg/dL (7-18) 04/26/22 05:05 Creatinine 0.9 mg/dL (0.55-1.02) 04/26/22 05:05 Est GFR (CKD-EPI 2020) 88.20 (mL/min/1.73m2) 04/26/22 05:05 Glucose 76 mg/dL (74-106) 04/26/22 05:05 Uric Acid 5.4 mg/dL (2.6-6.0) 04/26/22 05:05 Calcium 8.7 mg/dL (8.5-10.1) 04/26/22 05:05 Total Bilirubin 0.4 mg/dL (0.2-1.0) 04/26/22 05:05 AST 25 U/L (15-37) 04/26/22 05:05 ALT 14 U/L (14-59) 04/26/22 05:05 Alkaline Phosphatase 196 U/L (46-116) H 04/26/22 05:05 Lactate Dehydrogenase 237 U/L (81-234) H 04/26/22 05:05 Total Protein 6.6 g/dL (6.4-8.2) 04/26/22 05:05 Albumin 2.8 g/dL (3.4-5.0) L 04/26/22 05:05 Patient ABO/Rh O Negative 04/26/22 05:05 Vital Signs Reviewed: Yes Objective Narrative Objective Narrative: pre-eclampsia labs are essentially within normal limits. will continue to assess BP and for subjective signs of pre-e. KH Subjective Interval history since last seen: Ernestina is working well with contractions. Is going to use nitrous for some relief of discomfort. She is now reporting that ROM was at 0230 not 0140. Nursing aware and will correct time as well on documentation. Interventions Pain Management Interventions: Comfort Measures and Nitrous Oxide (available to patient) , reviewed proper use and expected results. . Results Hemoglobin/Hematocrit: Hgb 13.0 g/dL (11.2-15.7) 04/26/22 05:05 Hct 38.6 % (36.0-46.0) 04/26/22 05:05 Abnormal Lab Findings: Abnormal Labs 04/26/22 05:05 Anion Gap 13.7 H Alkaline Phosphatase 196 H Lactate Dehydrogenase 237 H Albumin 2.8 L
[2022-04-26 06:16] LABS: Source Nasal/Nares
[2022-04-26 06:53] LABS: COVID-19 PCR POSITIVE (Negative)
--- NOTE | 2022-04-26 07:42 | W.PM.OBNL1 ---
Date of service: 04/26/22 Time of Service: 07:42 Informed Consent Informed Consent: Risk,Benefits,Alternatives Discussed (IV access and lab/assessment for pre-eclampsia.) Contractions Monitor Mode: Palpation Contraction Frequency(min): 2-4 Contraction Duration(sec): 40-70 Intensity: Moderate Fetus A Monitor: External (US) Heart Rate Baseline: 120 Variability: Moderate (6-25 BPM) Categories: Category I Accelerations: 15 X 15 Assessment and Plan Assessment and plan (1) Normal labor: Status: Acute Assessment and plan: 1. contractions are regular and moderate on palpation, baby has been CAT I, will allow for patient to be off monitor to do ambulation and hands and knees 2. will reassess VE at 1200 for change unless otherwise indicated 3. I have updated Dr. Fowler on patient status, agrees with plan. KH Objective Abnormal lab results 04/26/22 04/26/22 Range/Units 05:05 05:45 Anion Gap 13.7 H (3-11) mmol/L Alkaline Phosphatase 196 H (46-116) U/L Lactate Dehydrogenase 237 H (81-234) U/L Albumin 2.8 L (3.4-5.0) g/dL SARS-CoV-2 (PCR) POSITIVE A* (Negative) Temp Pulse Resp BP 98.6 F 104 H 16 142/85 H 04/26/22 05:16 04/26/22 05:16 04/26/22 05:16 04/26/22 05:16 Laboratory Results WBC 7.42 10^3/uL (4.4-10.8) 04/26/22 05:05 RBC 4.51 10^6/uL (3.93-5.22) 04/26/22 05:05 Hgb 13.0 g/dL (11.2-15.7) 04/26/22 05:05 Hct 38.6 % (36.0-46.0) 04/26/22 05:05 MCV 86 fL (80-95) 04/26/22 05:05 MCH 28.8 pg (27.0-33.0) 04/26/22 05:05 MCHC 33.7 % (32.0-36.0) 04/26/22 05:05 RDW 12.1 % (11.7-14.6) 04/26/22 05:05 Plt Count 157 10^3/uL (130-400) 04/26/22 05:05 MPV 10.6 fL (8.0-11.0) 04/26/22 05:05 Sodium 138 mmol/L (136-145) 04/26/22 05:05 Potassium 3.7 mmol/L (3.5-5.1) 04/26/22 05:05 Chloride 103 mmol/L (98-107) 04/26/22 05:05 Carbon Dioxide 21.3 mmol/L (21.0-32.0) 04/26/22 05:05 Anion Gap 13.7 mmol/L (3-11) H 04/26/22 05:05 BUN 12 mg/dL (7-18) 04/26/22 05:05 Creatinine 0.9 mg/dL (0.55-1.02) 04/26/22 05:05 Est GFR (CKD-EPI 2020) 88.20 (mL/min/1.73m2) 04/26/22 05:05 Glucose 76 mg/dL (74-106) 04/26/22 05:05 Uric Acid 5.4 mg/dL (2.6-6.0) 04/26/22 05:05 Calcium 8.7 mg/dL (8.5-10.1) 04/26/22 05:05 Total Bilirubin 0.4 mg/dL (0.2-1.0) 04/26/22 05:05 AST 25 U/L (15-37) 04/26/22 05:05 ALT 14 U/L (14-59) 04/26/22 05:05 Alkaline Phosphatase 196 U/L (46-116) H 04/26/22 05:05 Lactate Dehydrogenase 237 U/L (81-234) H 04/26/22 05:05 Total Protein 6.6 g/dL (6.4-8.2) 04/26/22 05:05 Albumin 2.8 g/dL (3.4-5.0) L 04/26/22 05:05 COVID-19 Source Nasal/Nares 04/26/22 05:45 SARS-CoV-2 (PCR) POSITIVE (Negative) A* 04/26/22 05:45 Patient ABO/Rh O Negative 04/26/22 05:05 Antibody Screen POSITIVE 04/26/22 05:05 Antibody Identification Anti-D 04/26/22 05:05 Subjective Interval history since last seen: working well with contractions. denies urge to push. baby is active but small parts are noted easier with suspected OP presentation at this time. I have encouraged pt to be up and leaning forward over bed or to do hands and knees position. plan is repeat VE at 1200 unless otherwise indicated. KH Results Hemoglobin/Hematocrit: Hgb 13.0 g/dL (11.2-15.7) 04/26/22 05:05 Hct 38.6 % (36.0-46.0) 04/26/22 05:05 Abnormal Lab Findings: Abnormal Labs 04/26/22 04/26/22 05:05 05:45 Anion Gap 13.7 H Alkaline Phosphatase 196 H Lactate Dehydrogenase 237 H Albumin 2.8 L SARS-CoV-2 (PCR) POSITIVE A*
--- NOTE | 2022-04-26 12:35 | W.PM.OBNL1 ---
Date of service: 04/26/22 Time of Service: 12:36 Informed Consent Informed Consent: Risk,Benefits,Alternatives Discussed (IV access and lab/assessment for pre-eclampsia.) Pelvic Exam Dilation: 8 Effacement (%): 90 station: -1 Comments: breech presentation suspected as during this exam presenting part is soft, Dr. Fowler confirms by US and plan to go to C/S made. Contractions Monitor Mode: External Contraction Frequency(min): 2-5 Contraction Duration(sec): 60 Intensity: Moderate/Strong Fetus A Monitor: Novii Heart Rate Baseline: 130 Presentation: Bereket Breech Variability: Moderate (6-25 BPM) Categories: Category II (occasional variable deceleration) Assessment and Plan Assessment and plan (1) Breech presentation: Status: Acute Assessment and plan: 1. VE was distinctly different as presenting part was soft, bedside US now confirms breech presentation 2. Dr. Fowler present and discussed C/S which patient agrees to, Dr. Fowler will assume care. KH Objective Abnormal lab results 04/26/22 04/26/22 Range/Units 05:05 05:45 Anion Gap 13.7 H (3-11) mmol/L Alkaline Phosphatase 196 H (46-116) U/L Lactate Dehydrogenase 237 H (81-234) U/L Albumin 2.8 L (3.4-5.0) g/dL SARS-CoV-2 (PCR) POSITIVE A* (Negative) Temp Pulse Resp BP 98.6 F 103 H 16 121/73 04/26/22 05:16 04/26/22 10:26 04/26/22 05:16 04/26/22 10:26 Laboratory Results WBC 7.42 10^3/uL (4.4-10.8) 04/26/22 05:05 RBC 4.51 10^6/uL (3.93-5.22) 04/26/22 05:05 Hgb 13.0 g/dL (11.2-15.7) 04/26/22 05:05 Hct 38.6 % (36.0-46.0) 04/26/22 05:05 MCV 86 fL (80-95) 04/26/22 05:05 MCH 28.8 pg (27.0-33.0) 04/26/22 05:05 MCHC 33.7 % (32.0-36.0) 04/26/22 05:05 RDW 12.1 % (11.7-14.6) 04/26/22 05:05 Plt Count 157 10^3/uL (130-400) 04/26/22 05:05 MPV 10.6 fL (8.0-11.0) 04/26/22 05:05 Sodium 138 mmol/L (136-145) 04/26/22 05:05 Potassium 3.7 mmol/L (3.5-5.1) 04/26/22 05:05 Chloride 103 mmol/L (98-107) 04/26/22 05:05 Carbon Dioxide 21.3 mmol/L (21.0-32.0) 04/26/22 05:05 Anion Gap 13.7 mmol/L (3-11) H 04/26/22 05:05 BUN 12 mg/dL (7-18) 04/26/22 05:05 Creatinine 0.9 mg/dL (0.55-1.02) 04/26/22 05:05 Est GFR (CKD-EPI 2020) 88.20 (mL/min/1.73m2) 04/26/22 05:05 Glucose 76 mg/dL (74-106) 04/26/22 05:05 Uric Acid 5.4 mg/dL (2.6-6.0) 04/26/22 05:05 Calcium 8.7 mg/dL (8.5-10.1) 04/26/22 05:05 Total Bilirubin 0.4 mg/dL (0.2-1.0) 04/26/22 05:05 AST 25 U/L (15-37) 04/26/22 05:05 ALT 14 U/L (14-59) 04/26/22 05:05 Alkaline Phosphatase 196 U/L (46-116) H 04/26/22 05:05 Lactate Dehydrogenase 237 U/L (81-234) H 04/26/22 05:05 Total Protein 6.6 g/dL (6.4-8.2) 04/26/22 05:05 Albumin 2.8 g/dL (3.4-5.0) L 04/26/22 05:05 COVID-19 Source Nasal/Nares 04/26/22 05:45 SARS-CoV-2 (PCR) POSITIVE (Negative) A* 04/26/22 05:45 Patient ABO/Rh O Negative 04/26/22 05:05 Antibody Screen POSITIVE 04/26/22 05:05 Antibody Identification Anti-D 04/26/22 05:05 Subjective Interval history since last seen: reports contractions are stronger, no urge to push. KH Results Hemoglobin/Hematocrit: Hgb 13.0 g/dL (11.2-15.7) 04/26/22 05:05 Hct 38.6 % (36.0-46.0) 04/26/22 05:05 Abnormal Lab Findings: Abnormal Labs 04/26/22 04/26/22 05:05 05:45 Anion Gap 13.7 H Alkaline Phosphatase 196 H Lactate Dehydrogenase 237 H Albumin 2.8 L SARS-CoV-2 (PCR) POSITIVE A*
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
[2022-04-26] MEDS: Lactated Ringers 1,000 ML 200 ML IV (13:20)
[2022-04-26] MEDS: ceFAZolin 2 GM/50 ML BAG IVPB (13:20)
--- NOTE | 2022-04-26 13:48 | PLAC_PTH ---
PATIENT: Ernestina Toribio LOC: OBS U#:[id number] AGE/SX: 31/F ROOM: OBS.301 RE04/26/[address]: Tova Torres CNM : 1990 BED: A DIS: 04/29/2022 SPEC #: [id number] RECD: 04/26/22 17:30 STATUS: SURESH REQ #: [id number] PEE: 04/26/22 13:[address]: Tova Torres DEPT: Surgical Specimen RECD BY: Judith Foster ENTERED: 04/26/22 17:31 SP TYPE: PLAC OTHR DR: Yuan Reese Tissues: 1 - PLACENTA (3RD TRIMESTER) Procedures: GROSS AND MICRO LEVEL 5 Comments: [id number]
[2022-04-26] MEDS: Carboprost 250 MCG/ML AMP (13:55)
[2022-04-26] MEDS: Bupivacaine 0.25% Pres-Free 30 ML VIAL (14:00)
--- NOTE | 2022-04-26 14:35 | PDOC.OPNB_ITS ---
Date of service: 04/26/22 Time of Service: 14:35 Operative Note Operative Note Delivery Method: Unscheduled STAT: No and Primary NTSV>37 Weeks: No DATE OF PROCEDURE: 04/26/22 PRE-OP DIAGNOSES: Spontaneous rupture of membranes, active labor, elba breech POST-OP DIAGNOSES: same PROCEDURE: Primary low-transverse section SURGEON: Mari Fowler Handstitching Machine Collar Feller: Tova Torres Anesthesia: local and spinal Estimated blood loss (mL): 300 Pathology: other (Placenta) Complications: None Patient was transported to: floor Patient's condition: stable Findings: Viable female infant. Elba breech presentation. Normal placenta, intact. Normal appearing tubes, ovaries, uterus. Procedure Description: Patient had presented this morning with spontaneous rupture of membranes for clear fluid. She was in active labor and progressed to approximately 8 cm. At that point she was noted to be in a breech presentation, confirmed with ultrasound. Due to this fact, preparations were made for primary section. The risk benefits and alternatives of the procedure were explained to the patient in full informed consent was obtained. After receiving 2 g of Ancef, and 500 mg of Zithromax along with compression stockings for DVT prophylaxis, he was taken the operating suite. She is placed in the seated position and spinal anesthesia administered, tested and found to be adequate. She was then placed in the dorsal supine position with a rightward tilt. Vagin al preparation was performed, Wilkinosn catheter inserted, and cervical exam noted breech presentation and 9 cm. At this point patient was prepped and draped in the usual sterile fashion and after testing for adequate anesthetic, a Pfannenstiel skin incision was made. This was carried down to the underlying fascia which was nicked in the midline and the fascial incision incision extended laterally. The fascia was then split from the rectus muscles rectus muscle is identified and split in the midline. Peritoneum was identified tented up and entered sharply and the peritoneal incision extended superiorly and inferiorly. At this point the bladder blade was inserted and the vesicouterine peritoneum identified and bladder flap created. Bladder blade was reinserted and a low transverse uterine incision was made with a scalpel which was then extended bluntly laterally. The breech was delivered through the incision followed by the body to the point that the scapula were noted. The right arm was swept across the body, followed by the left arm. The vertex was delivered without trauma. Mouth and nose were suctioned upon delivery three-vessel cord was noted clamped x2 and cut and the was handed off to the waiting industrial psychologist. At this point, cord blood sample was obtained and the placenta was manually expressed from the uterus. The uterus was then exteriorized and cleared of all clot and debris. The uterus was somewhat boggy and the patient did receive both IV Pitocin, and 0.2 mg of Hemabate IM. At this point tonicity improved and the uterine incision was c losed in a 2 layer closure using 0 Vicryl suture with the first layer being running locked, second being imbricating. Uterine incision was hemostatic and the uterus was firm. The uterus was then returned to the abdomen, abdomen irrigated with copious amounts of normal saline uterine incision reinspected noted to be hemostatic at this point and the fascial incision was closed using 0 Vicryl suture. Subcutaneous tissue irrigated with copious months of normal saline subcu space reapproximated with 3-0 Vicryl suture in a simple interrupted fashion and the skin edge reapproximated with 4-0 Monocryl that was undyed in a subcuticular fashion. Steri-Strips and sterile dressings were placed. Patient was in stable condition in the recovery phase of her surgery. She had a Wilkinson catheter in place draining clear yellow urine. She was taken to the Center for in stable condition. Findings: Viable female infant from the breech presentation, normal tubes, ovaries, uterus. EBL: 300 mL Fluids: Crystalloid per anesthesia Complications: None apparent Pathology: Placenta for exam
--- NOTE | 2022-04-26 15:05 | W.ANESPOSTOP ---
Postoperative Evaluation Date, Time and Location Date Performed: 04/26/22 Time Performed: 15:06 Patient Location: Obstetrics Vital Signs Most Recent Imported Vital Signs: Most Recent Vital Signs Temp Pulse Resp BP 37.0 C 133 H 16 147/97 H 04/26/22 05:16 04/26/22 13:04 04/26/22 05:16 04/26/22 13:04 Most Recent Manually Entered Vital Signs: Adult Blood Pressure: 119/81 Heart Rate: 87 Respirations: 12 Oxygen Saturation (%): 98 Temperature (C): 36.6 C Pain Score (0-10 Scale): 0 Assessment Mental Status: Awake (Alert & Oriented to Patient Baseline) Airway and Respiratory Function: Patent airway with normal (patient baseline) respiratory exam Cardiovascular Function: Hemodynamically Stable Hydration Status: Adequately Hydrated Nausea & Vomiting: No Nausea or Vomiting Pain: Pain is tolerable per patient Peripheral Nerve Block: Patient did not receive a nerve block
[2022-04-26] MEDS: Lactated Ringers 1,000 ML 120 ML IV (16:30)
[2022-04-26] MEDS: Oxytocin/Normal Saline 30 UNIT/500 ML BAG 95 UNITS IV (16:37)
[2022-04-26] MEDS: Ketorolac 30 MG/ML VIAL IVP (20:39)
[2022-04-26] MEDS: Acetaminophen 325 MG TAB 650 MG PO (20:41)
[2022-04-26] MEDS: miSOPROStol 100 MCG TAB 800 MCG PO (20:45)
[2022-04-27 00:30] VITALS: TEMP 36.8
[2022-04-27] MEDS: Ketorolac 30 MG/ML VIAL IVP ×2 (04:27→09:51)
[2022-04-27] MEDS: Acetaminophen 325 MG TAB 650 MG PO ×2 (04:28→16:00)
[2022-04-27] MEDS: miSOPROStol 100 MCG TAB 800 MCG PO (04:29)
[2022-04-27 04:30] VITALS: BP 114/80; PULSE 73; RESP 17; TEMP 36.8; O2SAT 99
[2022-04-27] MEDS: Normal Saline Flush 10 ML SYR IVP ×2 (04:30→09:56)
[2022-04-27 06:18] LABS: Abs Immature Grans 0.12 10^3/uL (0.0-0.06); Absolute Basophil Count 0.02 10^3/uL (0.0-0.2); Basophils % 0.1; Eosinophils % 0.1; HGB 11.8 g/dL (11.2-15.7); Immature Grans % 0.7; MCH 29.4 pg (27.0-33.0); MCHC 33.7 % (32.0-36.0); MCV 87 fL (80-95); MPV 11.2 fL (8.0-11.0); Monocytes % 3.8; Neutrophils % 88.3; Platelet Count 146 10^3/uL (130-400); RBC 4.02 10^6/uL (3.93-5.22); RDW 12.2 % (11.7-14.6); RDW-SD 38.7 fL; WBC 16.89 10^3/uL (4.4-10.8)
[2022-04-27 06:19] LABS: Absolute Eosinophil Count 0.02 10^3/uL (0.0-0.7); Absolute Lymphocyte Count 1.18 10^3/uL (1.2-3.4); Absolute Monocyte Count 0.64 10^3/uL (0.1-0.8); Absolute Neutrophil Count 14.91 10^3/uL (1.2-6.7)
[2022-04-27 08:25] VITALS: BP 126/86; RESP 14; TEMP 36.4; O2SAT 96
--- NOTE | 2022-04-27 09:15 | W.PM.OBPNV1 ---
Date of service: 04/27/22 Time of Service: 09:15 Assessment and Plan Assessment and plan (1) Status post primary low transverse section: Status: Acute Assessment and plan: routine post op care (2) Breech presentation: Status: Acute (3) COVID-19 affecting in third trimester: Status: Acute Assessment and plan: Test day # 5. Minimal symptoms today Subjective Subjective Interval history: Doing well. Feeling well. No issue this AM Patient comments: No complaints and Pain well controlled baby status: Doing well and Nursing well Exam Physical Exam Vital signs: Temp Pulse Resp BP Pulse Ox 98.2 F 73 17 114/80 99 04/27/22 04:30 04/27/22 04:30 04/27/22 04:30 04/27/22 04:30 04/27/22 04:30 Vital Signs Reviewed: Yes Constitutional Constitutional: no acute distress HEENT Exam HEENT Exam: Normal Neck Exam Neck Exam: Normal Respiratory Exam Respiratory Exam: Normal Cardiovascular Exam Cardiovascular Exam: Normal Abdominal Exam Abdomen: Tender Comments: soft, mildly distended Fundal Exam Fundus: Below Umbilicus and Firm Extremities Exam Extremity Exam: Normal; negative Calf Tenderness Skin Exam Skin Exam: Normal Neurological Exam Neurological Exam: Normal Results Hemoglobin/Hematocrit: Hgb 11.8 g/dL (11.2-15.7) 04/27/22 06:10 Hct 35.0 % (36.0-46.0) L 04/27/22 06:10 Abnormal Lab Findings: Abnormal Labs 04/26/22 04/26/22 04/27/22 05:05 05:45 06:10 WBC 16.89 H Hct 35.0 L MPV 11.2 H Absolute Neutrophils 14.91 H Absolute Lymphocytes 1.18 L Anion Gap 13.7 H Alkaline Phosphatase 196 H Lactate Dehydrogenase 237 H Albumin 2.8 L SARS-CoV-2 (PCR) POSITIVE A*
[2022-04-27 16:00] VITALS: BP 126/82; PULSE 66; RESP 18; TEMP 36.9; O2SAT 96
[2022-04-27] MEDS: Docusate Sodium 100 MG CAP PO (16:00)
[2022-04-27 19:56] VITALS: BP 122/83; PULSE 70; RESP 17; TEMP 36.6; O2SAT 97
[2022-04-27] MEDS: Ibuprofen 600 MG TAB PO (20:33)
[2022-04-27] MEDS: oxyCODONE 5 mg/Acetaminophen 325 mg TAB PO (20:34)
[2022-04-28] VITALS (7 sets, daily range): BP systolic 112–147; BP diastolic 60–104; PULSE 71–80; RESP 17–20; TEMP 36.5–37; O2SAT 99
[2022-04-28] MEDS: Ibuprofen 600 MG TAB PO ×2 (03:23→17:49)
[2022-04-28] MEDS: Acetaminophen 325 MG TAB 650 MG PO (03:23)
[2022-04-28] MEDS: oxyCODONE 5 mg/Acetaminophen 325 mg TAB PO ×2 (08:26→19:54)
--- NOTE | 2022-04-28 10:47 | OBPPV_ITS ---
Date of service: 04/28/22 Time of Service: 10:47 Assessment and Plan Assessment and plan (1) Status post primary low transverse section: Status: Acute Assessment and plan: Post op day #2 S/P primary section for breech. Good pain control. Tolerating a regular diet and PO pain medication (2) COVID-19 affecting in third trimester: Status: Acute Assessment and plan: cecily # 5 Paxlovid (3) Gestational HTN: Status: Acute Assessment and plan: Elevated blood pressure today. Will begin Labetalol. Careful monitoring of BP. Check labs, CBC, CMP stat this AM Subjective Subjective Interval history: Patient seen and examined this morning. She is working on breast-feeding. As of note, she did have an elevated blood pressure this morning. When it was reperformed 143/96. She has no other signs or symptoms of preeclampsia. She does have a moderately brisk reflexes. Patient's Mood: Appropriate [place] baby status: Supplemental feeding going well feeding status: Breast and formula feeding Exam Physical Exam Vital signs: Temp Pulse Resp BP Pulse Ox 98.4 F 71 17 138/96 H 97 04/28/22 08:20 04/28/22 10:15 04/28/22 04:00 04/28/22 10:15 04/27/22 19:56 Vital Signs Reviewed: Yes Notable Details: elevated blood pressure Constitutional Constitutional: no acute distress and thin HEENT Exam HEENT Exam: Normal Neck Exam Neck Exam: Normal Respiratory Exam Respiratory Exam: Normal Cardiovascular Exam Cardiovascular Exam: Normal Abdominal Exam Abdomen: Tender Comments: incision clear, dry in tact Fundal Exam Fundus: Below Umbilicus and Firm Extremities Exam Extremity Exam: Normal; negative Calf Tenderness or Edema Detailed Neurological Exam Neurological: Present alert, oriented X3 and CN II-XII intact; Absent clonus Comments: DTR 3/4 B/L Psychiatric Exam Psychiatric Exam: Normal Results Hemoglobin/Hematocrit: Hgb 11.8 g/dL (11.2-15.7) 04/27/22 06:10 Hct 35.0 % (36.0-46.0) L 04/27/22 06:10 Abnormal Lab Findings: Abnormal Labs 04/26/22 04/26/22 04/27/22 05:05 05:45 06:10 WBC 16.89 H Hct 35.0 L MPV 11.2 H Absolute Neutrophils 14.91 H Absolute Lymphocytes 1.18 L Anion Gap 13.7 H Alkaline Phosphatase 196 H Lactate Dehydrogenase 237 H Albumin 2.8 L SARS-CoV-2 (PCR) POSITIVE A*
[2022-04-28] MEDS: Labetalol 100 MG TAB PO ×2 (11:02→19:56)
[2022-04-28 11:15] LABS: Abs Immature Grans 0.14 10^3/uL (0.0-0.06); Absolute Basophil Count 0.02 10^3/uL (0.0-0.2); Absolute Lymphocyte Count 1.68 10^3/uL (1.2-3.4); Basophils % 0.2; HCT 35.5 % (36.0-46.0); HGB 11.6 g/dL (11.2-15.7); Immature Grans % 1.2; Lymphocytes % 14.7; MCH 29.1 pg (27.0-33.0); MCHC 32.7 % (32.0-36.0); MCV 89 fL (80-95); MPV 10.9 fL (8.0-11.0); Monocytes % 6.1; Neutrophils % 77.8; Platelet Count 165 10^3/uL (130-400); RBC 3.99 10^6/uL (3.93-5.22); RDW 12.5 % (11.7-14.6); RDW-SD 40.9 fL; WBC 11.44 10^3/uL (4.4-10.8)
[2022-04-28 11:28] LABS: ALT 18 U/L (14-59); AST 28 U/L (15-37); Albumin 2.6 g/dL (3.4-5.0); Alkaline Phosphatase 154 U/L (46-116); Anion Gap 6.2 mmol/L (3-11); BUN 17 mg/dL (7-18); Bilirubin, Total 0.2 mg/dL (0.2-1.0); CO2 27.8 mmol/L (21.0-32.0); CREATININE 0.8 mg/dL (0.55-1.02); Calcium 8.8 mg/dL (8.5-10.1); Chloride 103 mmol/L (98-107); Estimated GFR 101.59 (mL/min/1.73m2); Glucose 99 mg/dL (74-106); Potassium 4.1 mmol/L (3.5-5.1); Sodium 137 mmol/L (136-145); Total Protein 6.3 g/dL (6.4-8.2)
--- NOTE | 2022-04-28 20:26 | NUR.NOTE ---
Pt sitting up in bed and discussed she has not slept today. Encouraged pt to nap until next feeding. To sleep when baby sleeps. Pt medicated and is currently napping.Nursing Note:
[2022-04-29] MEDS: Ibuprofen 600 MG TAB PO (02:30)
[2022-04-29] MEDS: Acetaminophen 325 MG TAB 650 MG PO (02:30)
--- NOTE | 2022-04-29 04:55 | NUR.NOTE ---
Pt and her baby are soundly asleep. WIll defer vitals until 0600Nursing Note:
[2022-04-29 06:00] VITALS: BP 126/78; PULSE 77; RESP 17; TEMP 36.7; O2SAT 96
[2022-04-29 08:00] VITALS: BP 129/82; PULSE 70; RESP 18; TEMP 36.8; O2SAT 97
[2022-04-29] MEDS: Labetalol 100 MG TAB PO (08:19)
--- NOTE | 2022-04-29 08:21 | W.PM.OBPNV1 ---
Date of service: 04/29/22 Time of Service: : Assessment and Plan Assessment and plan (1) Status post primary low transverse section: Status: Acute Assessment and plan: Postop day 3 status post primary low transverse section for breech in labor. Overall doing well. Discharge home today. (2) Gestational HTN: Status: Acute Assessment and plan: Blood pressure improved on labetalol, 100 mg twice daily. We will continue through the immediate period. She will be seen in the office in 1 and 6 weeks for blood pressure check and routine postoperative and care. All of her questions were answered today Subjective Subjective Interval history: Patient seen and examined this morning. All her discharge instructions were given. Overall she is feeling well. She has no signs or symptoms of preeclampsia this morning. Blood pressure is reasonably stable at 129/82. Laboratory studies from yesterday were normal. She is breast-feeding, and supplementing. Patient comments: No complaints, Incisional pain, Tolerating diet, Flatus present and Bowel Movement baby status: Doing well and Supplemental feeding going well [place] feeding status: Breast and formula feeding Exam Physical Exam Vital signs: Temp Pulse Resp BP Pulse Ox 98.2 F 70 18 129/82 97 04/29/22 08:00 04/29/22 08:00 04/29/22 08:00 04/29/22 08:00 04/29/22 08:00 Vital Signs Reviewed: Yes Constitutional Constitutional: no acute distress HEENT Exam HEENT Exam: Normal Neck Exam Neck Exam: Normal Respiratory Exam Respiratory Exam: Normal Cardiovascular Exam Cardiovascular Exam: Normal Abdominal Exam Comments: Abdomen soft, nontender, mild distention, active bowel sounds. Incision, clean, dry, intact. Fundal Exam Fundus: Below Umbilicus and Firm Extremities Exam Extremity Exam: Normal; negative Calf Tenderness or Edema Neurological Exam Neurological Exam: Normal Psychiatric Exam Psychiatric Exam: Normal Results Hemoglobin/Hematocrit: Hgb 11.6 g/dL (11.2-15.7) 04/28/22 11:00 Hct 35.5 % (36.0-46.0) L 04/28/22 11:00 Abnormal Lab Findings: Abnormal Labs 04/26/22 04/26/22 04/27/22 05:05 05:45 06:10 WBC 16.89 H Hct 35.0 L MPV 11.2 H Absolute Neutrophils 14.91 H Absolute Lymphocytes 1.18 L Anion Gap 13.7 H Alkaline Phosphatase 196 H Lactate Dehydrogenase 237 H Total Protein Albumin 2.8 L SARS-CoV-2 (PCR) POSITIVE A* 04/28/22 04/28/22 11:00 11:00 WBC 11.44 H Hct 35.5 L MPV Absolute Neutrophils 8.90 H Absolute Lymphocytes Anion Gap Alkaline Phosphatase 154 H Lactate Dehydrogenase Total Protein 6.3 L Albumin 2.6 L SARS-CoV-2 (PCR)
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
[2022-04-29 12:23] VITALS: BP 122/81; PULSE 85; RESP 18; TEMP 36.6; O2SAT 98
== END 2022-04-29 13:20 | disposition home or self-care (01) | DRG 786 ==
PROVIDERS: Obstetrics & Gynecology; Admitting Provider Advanced Practice Midwife; Visit Provider Advanced Practice Midwife
PROC: 10D00Z1 Extraction of Products of Conception, Low, Open Approach (ICD-10-PCS; CPT 59514; principal; 2022-04-26 12:45)
DX: O42.02 Full-term premature rupture of membranes, onset of labor within 24 hours of rupture (principal); O98.52 Other viral diseases complicating childbirth; O36.0930 Maternal care for other rhesus isoimmunization, third trimester, not applicable or unspecified; U07.1 COVID-19; Z37.0 Single live birth; O32.1XX0 Maternal care for breech presentation, not applicable or unspecified; Z3A.38 38 weeks gestation of pregnancy; O99.62 Diseases of the digestive system complicating childbirth; O99.892 Other specified diseases and conditions complicating childbirth; N87.9 Dysplasia of cervix uteri, unspecified; O99.344 Other mental disorders complicating childbirth; F41.0 Panic disorder [episodic paroxysmal anxiety]; K21.9 Gastro-esophageal reflux disease without esophagitis; O13.4 Gestational [pregnancy-induced] hypertension without significant proteinuria, complicating childbirth
CPT/HCPCS: 59514; 36415; 80053; 85027; 85461; 86850; 86900; 86901; 87635; 90384; 83615; 84550; 85025; 86870; 88307; J0456; J0690; J1885; J2370; J2405; J2790; J3010

== ENCOUNTER 2022-06-17 10:09 | Outpatient (REF) | payer OTHER, SELFPAY ==
--- NOTE | 2022-06-17 09:30 | PAPFT_PTH ---
PATIENT: Ernestina Toribio LOC: [facility] U#:[id number] AGE/SX: 32/F ROOM: RE06/17/[address]: Bella Christy CNM : 1990 BED: DIS: 06/17/2022 SPEC #: [id number] RECD: 06/17/22 12:58 STATUS: SURESH REQ #: [id number] PEE: 06/17/22 09:[address]: Bella Christy DEPT: [facility] Cytology RECD BY: Judith Foster ENTERED: 06/17/22 12:58 SP TYPE: PAPFT CIRO DR: DEON LIZARRAGA NP Tissues: 1 - CX/ENDOCX FOR PAP SMEARS Procedures: PAP THIN PREP/UVM Screening HPV DNA PROBE Comments: [id number] (HPV 16 & 18/45)
== END 2022-06-17 10:10 | disposition home or self-care (01) ==
LOC: LBN 10:09
PROVIDERS: PCP Nurse Practitioner Family; Visit Provider Advanced Practice Midwife
DX: Z12.4 Encounter for screening for malignant neoplasm of cervix (principal); Z11.51 Encounter for screening for human papillomavirus (HPV); R87.810 Cervical high risk human papillomavirus (HPV) DNA test positive
CPT/HCPCS: 88142; 87624

== ENCOUNTER 2022-09-26 13:05 | Outpatient (REF) | payer OTHER, SELFPAY | END 2022-09-26 13:06 | disposition home or self-care (01) | LOC: LBN 13:05 | PROVIDERS: PCP Nurse Practitioner Family; Visit Provider Advanced Practice Midwife | DX: R30.0 Dysuria (principal); N94.9 Unspecified condition associated with female genital organs and menstrual cycle; N34.2 Other urethritis | CPT/HCPCS: 87086; 87480; 87510; 87660 ==

== ENCOUNTER 2022-09-26 19:48 | Emergency (ER) | payer OTHER, SELFPAY ==
[2022-09-26 19:52] VITALS: BP 125/91; PULSE 114; RESP 16; TEMP 36.6; O2SAT 99
[2022-09-26 20:06] LABS: Bilirubin Negative (Negative); Blood Small (Negative); Clarity Clear (Clear); Glucose Negative (Negative); Ketones Negative (Negative); Leukocyte Esterase Negative (Negative); Nitrite Negative (Negative); Specific Gravity >= 1.030 (1.005-1.025); Urobilinogen 0.2 mg/dL (Up to 0.2)
[2022-09-26 20:17] LABS: Bacteria Rare HPF (Negative); C & S Indicated? No; Casts Negative LPF (Negative); Crystals Negative HPF (Negative); Epithelial Cells Few HPF (Negative); Mucus Negative (Negative)
[2022-09-26] MEDS: Phenazopyridine 200 MG TAB PO (20:35)
[2022-09-26] MEDS: Ondansetron O.D.T. 4 MG TABEF PO (20:35)
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
[2022-09-26] MEDS: Phenazopyridine 100 MG TAB, 2 TABS/BTL PO (21:17)
[2022-09-26] MEDS: Ondansetron O.D.T. 4 MG TABEF, 3 TABS/BTL PO (21:18)
[2022-09-26 21:22] VITALS: BP 136/88; PULSE 109; RESP 22; O2SAT 99
== END 2022-09-26 21:21 | disposition home or self-care (01) ==
PROVIDERS: Emergency Provider Nurse Practitioner Family; PCP Nurse Practitioner Family
DX: N34.2 Other urethritis (principal); N94.10 Unspecified dyspareunia
CPT/HCPCS: 99283; 81003; 81015

== ENCOUNTER 2022-12-18 02:58 | Outpatient (CLI) | payer OTHER, SELFPAY ==
[2022-12-20 12:49] LABS: TB Interpretation Negative (Negative); TB1 Ag minus Nil 0.13 IU/ml; TB2 Ag minus Nil 0.05 IU/mL
== END 2022-12-18 02:59 | disposition home or self-care (01) ==
PROVIDERS: PCP Nurse Practitioner Family; Visit Provider Nurse Practitioner Family
DX: Z11.1 Encounter for screening for respiratory tuberculosis (principal)
CPT/HCPCS: 36415; 86480

== ENCOUNTER 2023-10-28 11:55 | Outpatient (REF) | payer OTHER, SELFPAY ==
--- NOTE | 2023-10-28 11:30 | PAPFT_PTH ---
PATIENT: Ernestina Toribio LOC: [facility] U#:[id number] AGE/SX: 33/F ROOM: RE10/28/[address]: Radha Syed NP : 1990 BED: DIS: 10/28/2023 SPEC #: [id number] RECD: 10/28/23 12:38 STATUS: SURESH LOWERY #: [id number] PEE: 10/28/23 11:[address]: Radha Syed NP DEPT: [facility] Cytology RECD BY: Stefania Mak ENTERED: 10/28/23 12:38 SP TYPE: PAPFT OTHR DR: DEON LIZARRAGA NP Tissues: 1 - CX/ENDOCX FOR PAP SMEARS Procedures: PAP THIN PREP/UVM Screening HPV DNA PROBE Comments: [id number]
== END 2023-10-28 11:56 | disposition home or self-care (01) ==
LOC: LBN 11:55
PROVIDERS: PCP Nurse Practitioner Family; Visit Provider Nurse Practitioner Women's Health
DX: N94.10 Unspecified dyspareunia (principal); Z12.4 Encounter for screening for malignant neoplasm of cervix; Z11.51 Encounter for screening for human papillomavirus (HPV); Z87.410 Personal history of cervical dysplasia
CPT/HCPCS: 88142; 87624

== ENCOUNTER 2024-07-19 15:43 | Outpatient (REF) | payer OTHER, SELFPAY ==
--- NOTE | 2024-07-19 15:40 | PAPFT_PTH ---
PATIENT: Ernestina Toribio LOC: [facility] U#:[id number] AGE/SX: 34/F ROOM: RE07/19/[address]: Trisha Escobar : 1990 BED: DIS: 07/19/2024 SPEC #: [id number] RECD: 07/19/24 18:01 STATUS: SURESH RESabrina #: [id number] PEE: 07/19/24 15:[address]: Trisha sEcobar DEPT: [facility] Cytology RECD BY: Judith Foster ENTERED: 07/19/24 18:01 SP TYPE: PAPFT CIRO DR: DEON LIZARRAGA NP Tissues: 1 - CX/ENDOCX FOR PAP SMEARS Procedures: PAP THIN PREP/UVM Screening HPV DNA PROBE Comments: [id number] (HPV 16 & 18/45) (CHLAMYDIA/GC)
[2024-07-20 12:51] LABS: Chlamydia Result Negative (Negative); GC Result Negative (Negative)
== END 2024-07-19 15:44 | disposition home or self-care (01) ==
LOC: LBN 15:43
PROVIDERS: PCP Nurse Practitioner Family; Visit Provider Advanced Practice Midwife
DX: Z11.51 Encounter for screening for human papillomavirus (HPV) (principal); Z72.51 High risk heterosexual behavior; Z01.419 Encounter for gynecological examination (general) (routine) without abnormal findings; Z11.3 Encounter for screening for infections with a predominantly sexual mode of transmission
CPT/HCPCS: 87491; 87591; 88142; 87624

== ENCOUNTER 2024-08-16 04:15 | Outpatient (CLI) | payer OTHER, SELFPAY ==
[2024-08-16 16:16] LABS: HCT 39.5 % (36.0-46.0); HGB 14.1 g/dL (11.2-15.7); MCH 30.7 pg (27.0-33.0); MCHC 35.7 % (32.0-36.0); MCV 86 fL (80-95); MPV 9.2 fL (8.0-11.0); Platelet Count 257 10^3/uL (130-400); RDW 12.4 % (11.7-14.6); RDW-SD 38.5 fL; WBC 6.39 10^3/uL (4.4-10.8)
[2024-08-16 17:19] LABS: ALT 17 U/L (14-59); AST 18 U/L (15-37); Alkaline Phosphatase 85 U/L (46-116); Anion Gap 9.1 mmol/L (3-11); BUN 9 mg/dL (7-18); Bilirubin, Total 0.6 mg/dL (0.2-1.0); CO2 25.9 mmol/L (21.0-32.0); CREATININE 0.5 mg/dL (0.55-1.02); Calcium 9.3 mg/dL (8.5-10.1); Chloride 105 mmol/L (98-107); Estimated GFR 126.93 (mL/min/1.73m2); Glucose 101 mg/dL (74-106); Potassium 3.8 mmol/L (3.5-5.1); Sodium 140 mmol/L (136-145); TSH (W/Ref FT4) 0.65 uIU/mL (0.36-3.74); Total Protein 7.3 g/dL (6.4-8.2); Uric Acid 2.7 mg/dL (2.6-6.0)
[2024-08-17 19:58] LABS: Hepatitis B Surface Ag Negative (Negative)
[2024-08-17 20:28] LABS: HIV-1/2 Ag & Ab Screen Negative (Negative)
[2024-08-17 20:34] LABS: Hepatitis C Ab w Rflx HCV PCR Negative (Negative)
[2024-08-18 10:36] LABS: Rubella IgG Ab (UVM) Positive (See Note)
[2024-08-18 10:40] LABS: Varicella IgG Antibody Positive (See Note)
[2024-08-19 19:07] LABS: Syphilis IgG w/Reflex Nonreactive (Nonreactive)
== END 2024-08-16 04:16 | disposition home or self-care (01) ==
LOC: LBO 04:15
PROVIDERS: PCP Nurse Practitioner Family; Visit Provider Advanced Practice Midwife
DX: Z34.91 Encounter for supervision of normal pregnancy, unspecified, first trimester; O13.9 Gestational [pregnancy-induced] hypertension without significant proteinuria, unspecified trimester
CPT/HCPCS: 36415; 80053; 85027; 86787; 86803; 86850; 86900; 86901; 87340; 87389; 84443; 84550; 86762; 86780

== ENCOUNTER 2024-08-16 15:39 | Outpatient (REF) | payer OTHER, SELFPAY ==
[2024-08-16 18:36] LABS: *AMPHETAMINES SCREEN URINE Negative (Negative); *BARBITURATES SCREEN URINE Negative (Negative); *BENZODIAZEPINES SCREEN URINE Negative (Negative); Cannabinoids THC Negative (Negative); Cocaine Screen,Urine Negative (Negative); METHADONE URINE SCREEN Negative (Negative); OPIATES URINE SCREEN Negative (Negative); Tricyclic Antidepressants Negative (Negative)
[2024-08-18 12:06] LABS: Fentanyl Scr w/Rfx Confirm Negative ng/mL (<1)
== END 2024-08-16 15:40 | disposition home or self-care (01) ==
LOC: LBN 15:39
PROVIDERS: PCP Nurse Practitioner Family; Visit Provider Advanced Practice Midwife
DX: Z34.91 Encounter for supervision of normal pregnancy, unspecified, first trimester (principal)
CPT/HCPCS: 80307; 87086

== ENCOUNTER 2024-09-15 10:28 | Outpatient (CLI) | payer OTHER, SELFPAY ==
[2024-09-20 14:24] LABS: Cigarette smoking status non-Smoker; GA used in risk estimate Dates estimate; INHIBIN 247 pg/mL; IVF Pregnancy No; Initial or repeat testing Initial testing; Insulin dependent diabetes No; Maternal Weight 126 lbs; Number of Fetuses 1; Prev Down(T21)/Trisomy Pregnan No; Prev Pregnancy w/NTD No; RECOMMENDED FOLLOW UP None.; Results Summary Normal risk; hCG, TOTAL MoM 1.84 MoM; uE3 1.73 ng/mL
== END 2024-09-15 10:29 | disposition home or self-care (01) ==
LOC: LBO 10:28
PROVIDERS: PCP Nurse Practitioner Family; Visit Provider Advanced Practice Midwife
DX: Z34.91 Encounter for supervision of normal pregnancy, unspecified, first trimester
CPT/HCPCS: 36415; 81511

== ENCOUNTER 2024-12-01 01:32 | Outpatient (CLI) | payer OTHER, SELFPAY ==
[2024-12-01 11:05] LABS: HCT 31.8 % (36.0-46.0); HGB 10.9 g/dL (11.2-15.7); MCH 29.5 pg (27.0-33.0); MCHC 34.3 % (32.0-36.0); MCV 86 fL (80-95); MPV 9.2 fL (8.0-11.0); Platelet Count 221 10^3/uL (130-400); RDW 11.7 % (11.7-14.6); RDW-SD 36.3 fL; WBC 6.89 10^3/uL (4.4-10.8)
[2024-12-01 11:15] LABS: Glucose,1 Hr (Glucola) 117 mg/dL (80-140)
[2024-12-01 12:48] LABS: COMMENT (LAB VIEW ONLY) 77.37 mg/dL; PROTEIN 18.9 mg/dL; Prot/Crea Ur Ratio 0.24
[2024-12-01 15:10] LABS: Lab Add On Test DONE
[2024-12-01 16:26] LABS: *AMPHETAMINES SCREEN URINE Negative (Negative); *BARBITURATES SCREEN URINE Negative (Negative); *BENZODIAZEPINES SCREEN URINE Negative (Negative); Cannabinoids THC Negative (Negative); Cocaine Screen,Urine Negative (Negative); METHADONE URINE SCREEN Negative (Negative); OPIATES URINE SCREEN Negative (Negative)
[2024-12-01 16:27] LABS: Tricyclic Antidepressants Negative (Negative)
[2024-12-02 12:11] LABS: Fentanyl Scr w/Rfx Confirm Negative ng/mL (<1)
[2024-12-07 10:47] LABS: Buprenorphine Negative ng/mL (Cutoff: 5.0); Norbuprenorphine Negative ng/mL (Cutoff: 2.5)
== END 2024-12-01 01:33 | disposition home or self-care (01) ==
LOC: LBO 01:32
PROVIDERS: Advanced Practice Midwife; PCP Nurse Practitioner Family; Visit Provider Obstetrics & Gynecology
DX: Z34.93 Encounter for supervision of normal pregnancy, unspecified, third trimester; O13.3 Gestational [pregnancy-induced] hypertension without significant proteinuria, third trimester; O36.0930 Maternal care for other rhesus isoimmunization, third trimester, not applicable or unspecified
CPT/HCPCS: 36415; 80307; 80348; 82950; 85027; 86850; 86900; 86901; 90384; 82565; 84156

== ENCOUNTER 2024-12-28 11:16 | Outpatient (CLI) | payer OTHER, SELFPAY ==
[2024-12-28 11:21] VITALS: BP 111/68; PULSE 71; TEMP 36.6
[2024-12-28 11:24] VITALS: BP 111/68; PULSE 71
[2024-12-28 12:01] VITALS: BP 111/68; PULSE 71; TEMP 36.6
--- NOTE | 2024-12-28 12:01 | W.OBNST ---
Date of service: 12/28/24 Time of Service: 12:01 NST Evaluation Reason for NST Reasons for Nonstress Test: POLYHYDRAMNIOS Gestational Age Gestational Age in Weeks and Days: 32 Weeks and 0Days Test and Monitor Explained Test/Monitor Explained: Test Explained, Monitor Explained and Patient Verbalized Understanding Vital Signs Blood Pressure: 111/68 Pulse: 71 Temperature: 97.9 F NST Information Date on Monitor: 12/28/24 Time on Monitor: 11:24 Date off Monitor: 12/28/24 Time off Monitor: 11:46 Total Time on Monitor: 22 NST Interventions: PO Hydration Contraction Frequency: 0 NST Evaluation Patient States Movement: Present FHR Baseline: 120 Variability: Moderate 6-25 bpm Accelerations: 15x15 Decelerations: None NST Results: Reactive Note Ultrasound Done: N/A. NST Note Note: Category 1, reactive NST NST Reviewed and Verified by: Mari Fowler
== END 2024-12-28 11:52 ==
LOC: BCD 11:20 → OBS 11:21
PROVIDERS: PCP Nurse Practitioner Family; Visit Provider Obstetrics & Gynecology
DX: O40.3XX1 Polyhydramnios, third trimester, fetus 1 (principal); Z3A.32 32 weeks gestation of pregnancy
CPT/HCPCS: 59025

== ENCOUNTER 2025-01-04 07:39 | Outpatient (CLI) | payer OTHER, SELFPAY ==
[2025-01-04 14:59] VITALS: BP 110/67; PULSE 90; RESP 18; TEMP 36.8
[2025-01-04 15:00] VITALS: BP 110/67; PULSE 90; TEMP 36.7
[2025-01-04 15:32] VITALS: BP 110/67; PULSE 90; TEMP 36.7
--- NOTE | 2025-01-04 16:56 | W.OBNST ---
Date of service: 01/04/25 Time of Service: 15:30 NST Evaluation Reason for NST Reasons for Nonstress Test: POLYHYDRAMNIOS Gestational Age Gestational Age in Weeks and Days: 33 Weeks and 0Days Test and Monitor Explained Test/Monitor Explained: Test Explained, Monitor Explained and Patient Verbalized Understanding Vital Signs Blood Pressure: 110/67 Pulse: 90 Temperature: 98.0 F Urine Results Urine Protein: Positive Urine Ketones: Negative Urine Glucose: Negative Urine Blood: Negative NST Information Date on Monitor: 01/04/25 Time on Monitor: 14:57 Date off Monitor: 01/04/25 Time off Monitor: 15:24 Total Time on Monitor: 27 NST Interventions: PO Hydration NST Evaluation Patient States Movement: Present FHR Baseline: 125 Variability: Moderate 6-25 bpm Accelerations: 15x15 Decelerations: None NST Results: Reactive Note Ultrasound Done: N/A. NST Note Note: See record. NST Reviewed and Verified by: Leena Solano
[2025-01-04 16:57] VITALS: BP 110/67; PULSE 90; TEMP 36.7
== END 2025-01-04 15:30 ==
LOC: BCD 07:39 → OBS 14:55
PROVIDERS: PCP Nurse Practitioner Family; Visit Provider Obstetrics & Gynecology
DX: O40.3XX1 Polyhydramnios, third trimester, fetus 1 (principal); Z3A.33 33 weeks gestation of pregnancy
CPT/HCPCS: 59025

== ENCOUNTER 2025-01-09 07:55 | Outpatient (CLI) | payer OTHER, SELFPAY ==
[2025-01-09 12:54] VITALS: BP 112/69; PULSE 96; TEMP 36.8
[2025-01-09 12:57] VITALS: BP 112/69; PULSE 96
[2025-01-09 19:42] VITALS: BP 112/69; PULSE 96; TEMP 36.8
--- NOTE | 2025-01-09 19:42 | W.OBNST ---
Date of service: 01/09/25 Time of Service: 13:00 NST Evaluation Reason for NST Reasons for Nonstress Test: POLYHYDRAMNIOS Gestational Age Gestational Age in Weeks and Days: 33 Weeks and 5Days Test and Monitor Explained Test/Monitor Explained: Test Explained and Monitor Explained Vital Signs Blood Pressure: 112/69 Pulse: 96 Temperature: 98.2 F NST Information Date on Monitor: 01/09/25 Time on Monitor: 12:54 Date off Monitor: 01/09/25 Time off Monitor: 13:16 Total Time on Monitor: 22 NST Interventions: None NST Evaluation Patient States Movement: Present FHR Baseline: 125 Variability: Moderate 6-25 bpm Accelerations: 15x15 Decelerations: None NST Results: Reactive Note Ultrasound Done: N/A. NST Note NST Reviewed and Verified by: Leena Solano
== END 2025-01-09 13:20 ==
LOC: BCD 07:55 → OBS 12:34
PROVIDERS: PCP Nurse Practitioner Family; Visit Provider Obstetrics & Gynecology
DX: O40.3XX1 Polyhydramnios, third trimester, fetus 1 (principal); Z3A.33 33 weeks gestation of pregnancy
CPT/HCPCS: 59025

== ENCOUNTER 2025-01-18 07:18 | Outpatient (CLI) | payer OTHER, SELFPAY ==
[2025-01-18 13:09] VITALS: BP 112/76; PULSE 81
[2025-01-18 13:30] VITALS: BP 112/76; PULSE 81
--- NOTE | 2025-01-18 13:39 | PDOC.NST_ITS ---
Date of service: 01/18/25 Time of Service: 13:39 NST Evaluation Reason for NST Reasons for Nonstress Test: POLYHYDRAMNIOS Gestational Age Gestational Age in Weeks and Days: 35 Weeks and 0Days Test and Monitor Explained Test/Monitor Explained: Test Explained, Monitor Explained and Patient Verbalized Understanding Vital Signs Blood Pressure: 112/76 Pulse: 81 Urine Results Urine Protein: Negative Urine Ketones: Positive Urine Glucose: Negative Urine Blood: Negative NST Information Date on Monitor: 01/18/25 Time on Monitor: 13:03 Date off Monitor: 01/18/25 Time off Monitor: 13:23 Total Time on Monitor: 20 NST Interventions: PO Hydration Contraction Frequency: 1-3 min lasting 40-60 sec, pt unaware NST Evaluation Patient States Movement: Present FHR Baseline: 125 Variability: Moderate 6-25 bpm Accelerations: 15x15 Decelerations: None NST Results: Reactive Note Ultrasound Done: N/A. NST Note Note: Category 1, reactive NST. Occasional irregular contractions. Cervical exam performed. Closed, soft, posterior. Patient will have visit at [facility] on Friday and NST in 1 week. NST Reviewed and Verified by: Mari Fowler
[2025-01-18 13:40] VITALS: BP 112/76; PULSE 81
== END 2025-01-18 13:35 ==
LOC: BCD 07:18 → OBS 13:01
PROVIDERS: PCP Nurse Practitioner Family; Visit Provider Obstetrics & Gynecology
DX: O40.3XX1 Polyhydramnios, third trimester, fetus 1 (principal); Z3A.35 35 weeks gestation of pregnancy
CPT/HCPCS: 59025; 87086

== ENCOUNTER 2025-01-25 13:18 | Outpatient (CLI) | payer OTHER, SELFPAY ==
[2025-01-25 13:21] VITALS: BP 117/82; PULSE 82; TEMP 36.6
[2025-01-25 13:22] VITALS: BP 117/82; PULSE 82; TEMP 36.6
--- NOTE | 2025-02-01 12:07 | W.OBNST ---
Date of service: 01/25/25 Time of Service: 13:30 NST Evaluation Reason for NST Reasons for Nonstress Test: POLYHYDRAMNIOS Gestational Age Gestational Age in Weeks and Days: 36 Weeks and 0Days Test and Monitor Explained Test/Monitor Explained: Patient Verbalized Understanding Vital Signs Blood Pressure: 117/82 Pulse: 82 Temperature: 97.9 F NST Information Date on Monitor: 01/25/25 Time on Monitor: 13:06 Date off Monitor: 01/25/25 Time off Monitor: 13:38 Total Time on Monitor: 32 NST Interventions: PO Hydration NST Evaluation Patient States Movement: Present FHR Baseline: 125 Variability: Moderate 6-25 bpm Accelerations: 15x15 Decelerations: None NST Results: Reactive Note Ultrasound Done: N/A. NST Note NST Reviewed and Verified by: Leena Solano
[2025-02-01 12:08] VITALS: BP 117/82; PULSE 82; TEMP 36.6
== END 2025-01-25 13:40 ==
LOC: BCD 13:18 → OBS 13:19
PROVIDERS: PCP Nurse Practitioner Family; Visit Provider Obstetrics & Gynecology
DX: O40.3XX1 Polyhydramnios, third trimester, fetus 1 (principal); Z3A.35 35 weeks gestation of pregnancy
CPT/HCPCS: 59025

== ENCOUNTER 2025-02-01 07:00 | Outpatient (CLI) | payer OTHER, SELFPAY ==
[2025-02-01 13:01] VITALS: BP 125/80; PULSE 82; TEMP 36.5
--- NOTE | 2025-02-01 15:29 | W.OBNST ---
Date of service: 02/01/25 Time of Service: 13:20 NST Evaluation Reason for NST Reasons for Nonstress Test: POLYHYDRAMNIOS Gestational Age Gestational Age in Weeks and Days: 37 Weeks and 0Days Test and Monitor Explained Test/Monitor Explained: Test Explained, Monitor Explained and Patient Verbalized Understanding Vital Signs Blood Pressure: 125/80 Pulse: 82 Temperature: 97.7 F Weight: 164 lb Urine Results Urine Protein: Positive Urine Ketones: Negative Urine Glucose: Negative Urine Blood: Negative NST Information Date on Monitor: 02/01/25 Time on Monitor: 13:05 Date off Monitor: 02/01/25 Time off Monitor: 13:28 Total Time on Monitor: 23 NST Interventions: PO Hydration Contraction Frequency: pt had 2 contractions NST Evaluation Patient States Movement: Present FHR Baseline: 125 Variability: Moderate 6-25 bpm Accelerations: 15x15 Decelerations: None NST Results: Reactive Note Ultrasound Done: N/A. NST Note NST Reviewed and Verified by: Leena Solano
[2025-02-01 15:36] VITALS: BP 125/80; PULSE 82; TEMP 36.5
== END 2025-02-01 13:33 ==
LOC: BCD 07:00 → OBS 13:00
PROVIDERS: PCP Nurse Practitioner Family; Visit Provider Obstetrics & Gynecology
DX: Z3A.37 37 weeks gestation of pregnancy (principal); O40.3XX1 Polyhydramnios, third trimester, fetus 1
CPT/HCPCS: 59025

== ENCOUNTER 2025-02-07 07:25 | Outpatient (CLI) | payer OTHER, SELFPAY ==
[2025-02-07 15:19] VITALS: BP 121/85; PULSE 89
[2025-02-07 15:22] VITALS: BP 121/85; PULSE 89; TEMP 37.5
--- NOTE | 2025-02-07 16:04 | W.OBNST ---
Date of service: 02/07/25 Time of Service: 16:04 NST Evaluation Reason for NST Reasons for Nonstress Test: POLYHYDRAMNIOS Gestational Age Gestational Age in Weeks and Days: 37 Weeks and 6Days Test and Monitor Explained Test/Monitor Explained: Test Explained, Monitor Explained and Patient Verbalized Understanding Vital Signs Blood Pressure: 121/85 Pulse: 89 Temperature: 99.5 F Urine Results Urine Protein: Negative Urine Ketones: Positive Urine Glucose: Negative Urine Blood: Negative NST Information Date on Monitor: 02/07/25 Time on Monitor: 15:23 Date off Monitor: 02/07/25 NST Interventions: PO Hydration Contraction Frequency: Rare contractions noted during the NST; uterine irritability. NST Evaluation Patient States Movement: Present NST Results: Reactive (Reactive and reassuring) Note Ultrasound Done: N/A. NST Note Note: Patient presents for scheduled NST for kidney anomalies and polyhydramnios affecting . She reports good movement and denies any leakage of fluid or bleeding. She is scheduled for repeat on 02/15 at [facility]. She will return for NST. As the patient was leaving her NST, she inquired about blurring of her vision stating she occasionally has some, fluffy, vision. She denies scintillations, blindness, tunneling, ect. She reports a mild, intermittent headache, but this is readily responsive to hydration and Tylenol. Her BP today was WNL. We reviewed preE precautions and she was advised to have a low threshold for seeking immediate medical re-evaluation if concerns arise. She will have a repeat blood pressure check, tomorrow, and she is scheduled for f/u NST on . NST Reviewed and Verified by: Tamar Zehng
[2025-02-07 16:08] VITALS: BP 121/85; PULSE 89; TEMP 37.5
== END 2025-02-07 16:21 ==
LOC: BCD 07:28 → OBS 15:17
PROVIDERS: PCP Nurse Practitioner Family; Visit Provider Obstetrics & Gynecology
DX: O40.3XX1 Polyhydramnios, third trimester, fetus 1 (principal); Z3A.38 38 weeks gestation of pregnancy
CPT/HCPCS: 59025

== ENCOUNTER 2025-02-08 07:43 | Outpatient (CLI) | payer OTHER, SELFPAY ==
[2025-02-08 09:09] VITALS: BP 126/87; PULSE 95; RESP 18; TEMP 36.8; O2SAT 98
== END 2025-02-08 07:44 | disposition home or self-care (01) ==
LOC: BCD 07:43
PROVIDERS: PCP Nurse Practitioner Family; Visit Provider Obstetrics & Gynecology
DX: O13.3 Gestational [pregnancy-induced] hypertension without significant proteinuria, third trimester (principal); Z3A.38 38 weeks gestation of pregnancy
CPT/HCPCS: 99211

== ENCOUNTER 2025-02-10 07:19 | Outpatient (CLI) | payer OTHER, SELFPAY ==
[2025-02-10 13:15] VITALS: BP 129/92; PULSE 96; TEMP 36.8
[2025-02-10 13:19] VITALS: BP 129/92; PULSE 96
[2025-02-10 13:42] VITALS: BP 132/87; PULSE 88
[2025-02-10 15:12] VITALS: BP 129/92; PULSE 96; TEMP 36.8
--- NOTE | 2025-02-10 15:12 | W.OBNST ---
Date of service: 02/10/25 Time of Service: 15:12 NST Evaluation Reason for NST Reasons for Nonstress Test: POLYHYDRAMNIOS Gestational Age Gestational Age in Weeks and Days: 38 Weeks and 2Days Test and Monitor Explained Test/Monitor Explained: Test Explained, Monitor Explained and Patient Verbalized Understanding Vital Signs Blood Pressure: 129/92 Pulse: 96 Temperature: 98.2 F Urine Results Urine Protein: Negative Urine Ketones: Negative Urine Glucose: Negative Urine Blood: Negative NST Information Date on Monitor: 02/10/25 Time on Monitor: 13:15 Date off Monitor: 02/10/25 Time off Monitor: 13:56 Total Time on Monitor: 41 NST Interventions: PO Hydration Contraction Frequency: 0 NST Evaluation Patient States Movement: Present FHR Baseline: 125 Variability: Moderate 6-25 bpm Accelerations: 15x15 Decelerations: None NST Results: Reactive Note Ultrasound Done: N/A. NST Note Note: Category 1 reactive NST NST Reviewed and Verified by: Mari Fowler
== END 2025-02-10 14:42 ==
LOC: BCD 07:19 → OBS 13:04
PROVIDERS: PCP Nurse Practitioner Family; Visit Provider Obstetrics & Gynecology
DX: O40.3XX1 Polyhydramnios, third trimester, fetus 1 (principal); Z3A.38 38 weeks gestation of pregnancy
CPT/HCPCS: 59025

== ENCOUNTER 2025-02-22 10:53 | Outpatient (CLI) | payer OTHER, SELFPAY ==
[2025-02-22 11:16] VITALS: BP 144/94; PULSE 82; RESP 18; TEMP 37; O2SAT 97
[2025-02-22 12:23] LABS: Abs Immature Grans 0.02 10^3/uL (0.0-0.06); HCT 40.1 % (36.0-46.0); HGB 12.5 g/dL (11.2-15.7); Immature Grans % 0.4 %; MCH 25.6 pg (27.0-33.0); MCHC 31.2 % (32.0-36.0); MCV 82 fL (80-95); MPV 9.8 fL (8.0-11.0); Platelet Count 267 10^3/uL (130-400); RBC 4.89 10^6/uL (3.93-5.22); RDW 12.8 % (11.7-14.6); RDW-SD 38.3 fL; WBC 4.79 10^3/uL (4.4-10.8)
[2025-02-22 12:30] VITALS: BP 147/91
[2025-02-22 12:43] LABS: ALT 80 U/L (14-59); AST 60 U/L (15-37); Albumin 3.3 g/dL (3.4-5.0); Alkaline Phosphatase 226 U/L (46-116); Anion Gap 12.0 mmol/L (3-11); BUN 20 mg/dL (7-18); Bilirubin, Total 0.4 mg/dL (0.2-1.0); CO2 24.0 mmol/L (21.0-32.0); Calcium 9.3 mg/dL (8.5-10.1); Chloride 106 mmol/L (98-107); Estimated GFR 117.04 (mL/min/1.73m2); Glucose 83 mg/dL (74-106); Potassium 4.4 mmol/L (3.5-5.1); Sodium 142 mmol/L (136-145); Total Protein 7.6 g/dL (6.4-8.2)
[2025-02-22] MEDS: NIFEdipine-CR 30 MG TABCR PO (12:58)
[2025-02-22 13:38] LABS: PROTEIN 12.9 mg/dL; Prot/Crea Ur Ratio 0.22
[2025-02-22 14:00] VITALS: BP 151/107
[2025-02-22 14:10] VITALS: BP 150/99
[2025-02-22 14:25] VITALS: BP 144/94
== END 2025-02-22 15:00 ==
LOC: BCD 10:54 → OBS 10:56
PROVIDERS: Obstetrics & Gynecology; PCP Nurse Practitioner Family; Visit Provider Obstetrics & Gynecology
DX: O13.5 Gestational [pregnancy-induced] hypertension without significant proteinuria, complicating the puerperium (principal)
CPT/HCPCS: 36415; 80053; 99211; 82565; 84156; 85025

== ENCOUNTER 2025-02-23 07:35 | Outpatient (CLI) | payer OTHER, SELFPAY ==
[2025-02-23 12:10] VITALS: BP 144/101
[2025-02-23 12:45] VITALS: BP 130/104
[2025-02-23 13:40] VITALS: BP 139/105
[2025-02-23 13:53] VITALS: BP 135/96; PULSE 91
[2025-02-23] MEDS: NIFEdipine 10 MG CAP PO (13:54)
[2025-02-23 14:38] VITALS: BP 132/94
--- NOTE | 2025-02-23 15:02 | OBPPV_ITS ---
Date of service: 02/23/25 Time of Service: 15:02 Assessment and Plan Assessment and plan (1) Status post repeat low transverse section: Status: Acute Assessment and plan: Patient is 1 week status post repeat at [facility] due to occasion with renal abnormalities. She herself also developed preeclampsia with severe features, help syndrome and was on magnesium sulfate. She was discharged home on oral antihypertensives. She is seen by us for follow-up. She is currently using Procardia XL 30 mg. She had normal laboratory studies yesterday. She will be seen back on the center tomorrow for blood pressure check as well. Precautions given (2) History of severe pre-eclampsia: Status: Acute (3) History of hemolysis, elevated liver enzymes, and low platelet (HELLP) syndrome: Status: Acute (4) Status post repeat low transverse section: Status: Acute Subjective Subjective Interval history: Patient seen on the center for blood pressure check. She had persistent elevation in her diastolic blood pressure with no other symptomatology. She had taken her dose of Procardia XL when she arrived. She got 1 additional dose of Procardia 10 mg which decreased her blood pressure to 132/94. She had recent laboratory studies which were done yesterday which were normal. In light of her asymptomatic nature of her elevated blood pressures and normal laboratory studies she will go home and continue her Procardia XL 30 mg daily. She will check daily blood pressures at home and be seen by again tomorrow for blood pressure check. Exam Physical Exam Vital signs: Pulse BP 91 H 132/94 H 02/23/25 13:53 02/23/25 14:38
== END 2025-02-23 14:45 ==
LOC: BCD 07:35 → OBS 12:10
PROVIDERS: PCP Nurse Practitioner Family; Visit Provider Obstetrics & Gynecology
DX: Z98.891 History of uterine scar from previous surgery (principal); Z87.59 Personal history of other complications of pregnancy, childbirth and the puerperium; O13.5 Gestational [pregnancy-induced] hypertension without significant proteinuria, complicating the puerperium
CPT/HCPCS: 99211

== ENCOUNTER 2025-02-24 07:18 | Outpatient (CLI) | payer OTHER, SELFPAY ==
[2025-02-24 10:20] VITALS: BP 139/108; PULSE 98
[2025-02-24 10:33] VITALS: BP 132/104
== END 2025-02-24 11:00 ==
LOC: BCD 07:19 → OBS 10:20
PROVIDERS: PCP Nurse Practitioner Family; Visit Provider Obstetrics & Gynecology
DX: O13.5 Gestational [pregnancy-induced] hypertension without significant proteinuria, complicating the puerperium (principal)
CPT/HCPCS: 99211